=== PATIENT | female | born 1965 | race Caucasian/White ===

== ENCOUNTER 2019-09-01 15:59 | Inpatient (IN) | payer OTHER, SELFPAY ==
[2019-09-01 16:01] VITALS: BP 130/82; PULSE 105; RESP 18; TEMP 36.7; O2SAT 99; BMI 29.7
--- NOTE | 2019-09-01 16:33 | ED.DCSUM_ITS ---
History of Present Illness Chief Complaint: Substance Abuse Informant: Patient Onset: - - years Narrative: Patient is a 53-year-old female with history of chronic benzo use requesting detox. Patient states for 13 years she has been on 2 mg of Xanax nightly. She is also been on Ambien 0.5 mg nightly. The past 26 years she is been on nortriptyline 100 mg that she started taking for depression. Finally she is also been on trazodone 200 mg nightly for years as well. She states her just recently found out about her Xanax and Ambien use and she is now requesting detox. She was seen by 180 who recommended she come to the emergency room for admission to detox. Patient notes that if she does forget to take her medication she gets very shaky as well as nausea and vomiting. Over the past she has missed alcohol with these medications and is had multiple falls and head injuries. She not had a recent falls in the past 9 months. Patient denies any homicidal suicidal ideations. She denies any worsening of her depression but notes this has been a very stressful time for her. She states she is ready to get off all these medications. These medications were prescribed by her primary care doctor. The is quite upset that doctor has been prescribing these medications for this long. Patient denies any illicit drug use. She states she still functioning and able to work. Past Medical History - Allergies and Home Meds Allergies/Adverse Reactions: Allergies codeine Allergy (Verified 09/01/19 16:01) Itching Past Medical History: - - Depression Surgical History: noncontributory Lives: Spouse/ Significant Other Alcohol: Occasional Drugs: None - Family History Maternal Family History: Reports: No pertinent history Paternal Family History: Reports: No pertinent history Review of Systems General: Denies: Chills, Fever, Sweats Eyes: Denies: Visual changes - bilaterally, Diplopia ENT: Denies: Rhinorrhea, Sore throat Cardiovascular: Denies: Chest pain, Palpitations Respiratory: Denies: Dyspnea, Cough, Dyspnea on exertion Gastrointestinal: Denies: Abdominal pain, Nausea, Vomiting, Diarrhea, Melena, Hematochezia Genitourinary: Denies: Dysuria, Hematuria, Frequency Musculoskeletal: Denies: Back pain, Extremity Pain Skin: Denies: Rash, Wounds Neurological: Denies: Headache, Weakness, Numbness Psych: Reports: Anxiety, - - Benzodiazepine dependency. Denies: Depression, Suicidal thoughts, Suicidal ideations Physical Exam Vital Signs/Narrative: Vital Signs Temp Pulse Resp BP Pulse Ox 09/01/19 16:01 98.1 F 105 H 18 130/82 H 99 Inital Vital Signs reviewed: Yes General: Well nourished, Well developed, No Acute Distress Head: Normocephalic, Atraumatic Eyes: Perrl, EOMI ENT: Moist mucous membranes, No rhinorrhea Neck: Supple, Nontender Cardiovascular: Regular rate, Regular rhythm, No murmurs Respiratory: No distress, CTA bilaterally, Chest nontender Abdomen: Soft, Nontender, Nondistended, Normal bowel sounds Back: Nontender, Normal Inspection Extremities: Nontender, No edema Skin: Normal color, No rash Neurological: Alert, Oriented x3, Cranial nerves II-XII grossly intact, Normal Strength, Normal Sensation Psychological: Normal affect, Normal Mood. Negative for: Depressed, Agitated Diagnostic/Tx/Re-eval - Medical Decision Making Patient is evaluated for request for benzodiazepine detox. She appears nontoxic in no acute distress. She is mildly tachycardic however patient states he has a history of tachycardia as well as low blood pressure. She is not tremulous at this time. She is a normal neurologic exam. She is behaving appropriate. Patient does generally seem to want to be detox. Discussed with hospitalist who will admit and consult to addiction medicine. Patient is agreeable this plan. Screening labs are ordered per protocol. ED Disposition - Plan for ED Patient: Disposition: [facility] Diagnosis: Benzodiazepine dependence
--- NOTE | 2019-09-01 16:54 | HP.PCM_ITS ---
History of Present Illness Date of Admission: 09/01/19 Chief Complaint: benzodiazepine withdrawal The patient is a 53 year old F with a past medical history of anxiety and depression. Patient was admitted through the ED on 09/01/2019 for benzodiazepine withdrawal. She was referred to us to [facility] for [facility]. Patient states she started taking nortriptyline after she had depression around 26 years ago. That did not help much and subsequently she became depressed and anxious because she was trying to have a second child and was unsuccessful. She was started on benzodiazepines and these were gradually increased and more were added on. She also says she struggles with insomnia and so started taking Ambien as well. She has been on Xanax and trazodone for at least 30 years and says she is been taking Ambien and nortriptyline for at least 26 years. She says her primary care doctor has been prescribing all of these for her. She last saw her primary care doctor in November 2017 but has still been getting scripts for her benzodiazepines. Her found out this last week that she had been taking these medications for all these years and so convinced her to seek help. Patient went 180 today and was told that she needed to come into the hospital for acute withdrawal. Patient has been admitted to be managed for acute benzodiazepine withdrawal. [] Past Medical History Allergies codeine Allergy (Verified 09/01/19 16:01) Itching Surgical History: noncontributory Psychiatric History: No pertinent psych hx PRINCIPAL SYSTEM SOFTWARE ENGINEER History: No pertinent PRINCIPAL SYSTEM SOFTWARE ENGINEER history Lives: Spouse/ Significant Other Smoking Status: Never smoker Alcohol: Occasional Drugs: None - *Family History Maternal History Items: No pertinent history Paternal History Items: No pertinent history Review of Systems Constitutional: Denies: Chills, Fever, Malaise, Weakness, Weight Change, Fatigue Eyes: Denies: Blurred vision HEENT: Denies: Head Aches, Sinus Congestion, Sinus Drainage Cardiovascular: Denies: Chest Pain, Palpitations Respiratory: Denies: Cough, Shortness of Breath, Shortness of breath at rest, Shortness of breath upon exertion, Sputum production Gastrointestinal: Denies: Abdominal Pain, Nausea, Vomiting Genitourinary: Denies: Dysuria Musculoskeletal: Denies: Joint Pain, Joint Tenderness Skin: Denies: Rash, Wounds Neurological: Denies: Numbness, Tingling, Focal weakness Psychiatric: Reports: Anxiety, Depression Hematologic/ Lymphatic: Denies: Easy Bruising, Easy Bleeding VTE Information - Inpt Only VTE Present on Admission: No VTE Pharm Prophylaxis ordered?: Yes Patient Problems: Active and Suspected Problems Benzodiazepine dependence (Acute) - Physical Exam Vitals/I&O's: Vital Signs Temp Pulse Resp BP Pulse Ox 98.1 F 105 H 18 130/82 H 99 09/01/19 16:01 09/01/19 16:01 09/01/19 16:01 09/01/19 16:01 09/01/19 16:01 Oxygen Delivery Method Room Air Weight: 168 lb Body Mass Index (BMI) 29.7 General: Alert, Oriented x3, Cooperative, - - anxious and tearful HEENT: Atraumatic, PERRLA, EOMI, Normocephalic Oral: Moist Mucosa Neck: Supple, No JVD, Negative Carotid Bruits Lungs: Clear to auscultation, Normal air movement, No rhonchi, No wheeze, No rales Cardiovascular: Regular rate, Regular Rhythm, Normal S1, Normal S2, No murmurs Abdomen: Bowel Sounds Present, Soft, Non Tender, Non-Distended, No Hepato- splenomegaly Extremities: No clubbing, No cyanosis, No edema, Capillary Refill Less than 3 Seconds Skin: No rashes, No breakdown Musculoskeletal: No Tenderness to Palpation of Joints or Extremities Lymphatic: No Cervical, Supraclavicular, or Inguinal Adenopathy Neurological: Cranial nerves II-XII grossly intact, Neuro grossly intact, Motor Exam 5/5 strength throughout Psych/Mental Status: Anxious, Alert and oriented to time, place, person, mood and affect Assessment/Plan All Active Problems Benzodiazepine dependence (Acute) 53 y/o admitted for benzodiazepine withdrawal 1. Acute benzodiazepine withdrawal * admit to Med surg with telemetry * check CBC, BMP, serum alcohol level and urine tox * start patient on withdrawal protocol with librium * patient counseled that she would need to be tapered off benzodiazepine in the outpatient setting after acute withdrawal phase is over. Patient will follow- up with Jessica and Dr. Martinez after discharge * 2. Post menopause: * on progesterone and estrogen supplements. * Denies any history of PE or DVT or any family history of such. Patient counseled about estrogen and progesterone supplements and a risk factor for DVT or PE. * Patient states she is aware of this but wants to continue taking the supplements. * DVT prophylaxis: lovenox Code Visit Inpatient E&M: 37163 Init Hosp L3
[2019-09-01 17:28] LABS: Absolute Lymphocyte Count 2.11 X10^3/uL (0.83-4.51); Absolute Neutrophil Count 4.8 X10^3/uL (2.0-7.7); Basophil# 0.04 X10^3/uL; Basophil% 0.5 % (0-1); Eosinophil# 0.04 X10^3/uL; Eosinophils% 0.5 % (0-5); Hematocrit 40.9 % (37-47); Hemoglobin 13.6 g/dL (12.0-15.0); Lymphocyte # 2.11 X10^3/ul (4.0); Lymphocyte % 27.3 % (19-41); Mean Corp Hgb Conc 33.3 g/dL (32-36); Mean Corpuscular Hgb 31.1 pg (27.0-32.0); Mean Corpuscular Volume 93.4 fL (81-99); Mean Platelet Vol. 10.1 fl (6.2-12.0); Monocyte# 0.69 X10^3/uL; Monocyte% 8.9 % (0-10); NRBC Flagged by Analyzer 0 % (0-5); Neutrophil # 4.81 X10^3/uL (2.7-7.7); Neutrophil % 62.2 % (47-70); Platelet Count 238 K/mm3 (150-450); RBC Distribution Width CV 13.8 % (11.6-14.6); RBC Distribution Width SD 47.1 fl (35.1-43.9); Red Blood Count 4.38 M/mm3 (4.2-5.4); White Blood Count 7.7 K/mm3 (4.4-11.0)
[2019-09-01 17:38] VITALS: BMI 31.0; BMI 31.1
[2019-09-01 17:39] LABS: Amphetamine Urine VISTA NEGATIVE (<1000 ng/mL); Anion Gap 7 (5-15); BUN 8 mg/dL (7-18); BUN/Creat Ratio 8.7 RATIO (10-20); Barbiturate Urine VISTA NEGATIVE (< 200 ng/mL); Benzodiazepine Urine VISTA POSITIVE (< 200 ng/mL); Calcium,Total 9.3 mg/dL (8.5-10.1); Chloride 108 mmol/L (98-107); Cocaine Urine VISTA NEGATIVE (< 300 ng/mL); Creatinine, Serum 0.92 mg/dL (0.55-1.02); EST Glomerular Filtration Rate 68 mL/min (>60); Ecstacy Urine VISTA POSITIVE (< 500 ng/mL); Est Glom Filt Rate - Afr Amer 82 mL/min (>60); Glucose 92 mg/dL (74-106); Methadone Urine VISTA NEGATIVE (< 300 ng/mL); PCP Urine VISTA NEGATIVE (< 25 ng/mL); Potassium 3.6 mmol/L (3.5-5.1); Sodium Level 139 mmol/L (136-145); THC Urine VISTA NEGATIVE (< 50 ng/mL); Vista UDS pH Range 6
[2019-09-01] MEDS: chlordiazePOXIDE 25 MG Capsule PO (18:15)
[2019-09-01 18:18] VITALS: BP 134/82; PULSE 95; RESP 16; TEMP 36.8
[2019-09-01 18:18] LABS: Alcohol, Blood (Medical)-Serum < 3.0 mg/dL
[2019-09-01 18:30] VITALS: PULSE 70
[2019-09-01 19:00] VITALS: PULSE 100
[2019-09-01 19:01] VITALS: PULSE 105
[2019-09-01 20:45] VITALS: BP 127/82; PULSE 90; RESP 16; TEMP 36.8; O2SAT 98
[2019-09-02] VITALS (7 sets, daily range): BP systolic 100–119; BP diastolic 63–93; PULSE 88–107; RESP 16–18; TEMP 36.3–37.1; O2SAT 96–99
[2019-09-02] MEDS: hydrOXYzine PAM 25 MG Capsule 50 MG PO ×3 (00:16→18:38)
[2019-09-02] MEDS: chlordiazePOXIDE 25 MG Capsule PO ×4 (00:16→20:18)
[2019-09-02 06:18] LABS: Absolute Lymphocyte Count 2.18 X10^3/uL (0.83-4.51); Absolute Neutrophil Count 4.2 X10^3/uL (2.0-7.7); Basophil# 0.05 X10^3/uL; Basophil% 0.7 % (0-1); Eosinophil# 0.06 X10^3/uL; Eosinophils% 0.8 % (0-5); Hematocrit 38.6 % (37-47); Hemoglobin 12.7 g/dL (12.0-15.0); Lymphocyte # 2.18 X10^3/ul (4.0); Lymphocyte % 30.7 % (19-41); Mean Corp Hgb Conc 32.9 g/dL (32-36); Mean Corpuscular Hgb 30.8 pg (27.0-32.0); Mean Corpuscular Volume 93.7 fL (81-99); Mean Platelet Vol. 9.9 fl (6.2-12.0); Monocyte# 0.65 X10^3/uL; Monocyte% 9.1 % (0-10); NRBC Flagged by Analyzer 0 % (0-5); Neutrophil # 4.15 X10^3/uL (2.7-7.7); Neutrophil % 58.4 % (47-70); Platelet Count 207 K/mm3 (150-450); RBC Distribution Width CV 13.7 % (11.6-14.6); Red Blood Count 4.12 M/mm3 (4.2-5.4); White Blood Count 7.1 K/mm3 (4.4-11.0)
[2019-09-02 06:50] LABS: Anion Gap 5 (5-15); BUN 8 mg/dL (7-18); BUN/Creat Ratio 9.6 RATIO (10-20); Calcium,Total 8.9 mg/dL (8.5-10.1); Chloride 110 mmol/L (98-107); Creatinine, Serum 0.84 mg/dL (0.55-1.02); EST Glomerular Filtration Rate 76 mL/min (>60); Est Glom Filt Rate - Afr Amer 92 mL/min (>60); Estimated Creatinine Clearance 64.07 ml/min; Glucose 96 mg/dL (74-106); Potassium 3.3 mmol/L (3.5-5.1); Sodium Level 140 mmol/L (136-145)
--- NOTE | 2019-09-02 07:37 | PCM.PN.HOSP ---
Patient Problems: Active and Suspected Problems Benzodiazepine dependence (Acute) Reason for Visit: Acute benzo withdrawal Subjective: 53-year-old lady with history of benzo dependence admitted with acute benzo withdrawal Objective: GENERAL: cooperative HEENT: Atraumatic; EYES; Anicteric, Normal Conjunctiva NECK; supple, normal thyroid, RESPIRATORY: Diminished to auscultation CARDIOVASCULAR: Regular S1 S2, GI: soft, normoactive bowel sounds, : No Renal angle tenderness; EXTREMITIES: No edema, no clubbing, MUSCULOSKELETAL: no muscle waisting NEURO: Awake; no lateralizing signs. SKIN: No Rash PSYCH; Flat affect Vitals/I&O's: Vital Signs Temp Pulse Resp BP Pulse Ox 97.8 F 89 18 104/63 99 09/02/19 04:55 09/02/19 04:55 09/02/19 04:55 09/02/19 04:55 09/02/19 04:55 Oxygen Delivery Method Room Air Weight: 79.515 kg Body Mass Index (BMI) 31.0 Intake and Output for Last 24 Hours 08/31/19 09/01/19 09/02/19 23:59 23:59 23:59 Intake Total 500 / 500 Balance 500 / 500 Laboratory Results 09/01/19 17:05: WBC 7.7, RBC 4.38, Hgb 13.6, Hct 40.9, MCV 93.4, MCH 31.1, MCHC 33.3, RDW Std Deviation 47.1 H, RDW Coeff of Latonya 13.8, Plt Count 238, MPV 10.1, Immature Gran % (Auto) 0.600, Neut % (Auto) 62.2, Lymph % (Auto) 27.3, [place] % (Auto) 8.9, Eos % (Auto) 0.5, Baso % (Auto) 0.5, Absolute Neuts (auto) 4.8, Absolute Lymphs (auto) 2.11, Nucleated RBC % 0 09/01/19 17:05: Sodium 139, Potassium 3.6, Chloride 108 H, Carbon Dioxide 24.0, Anion Gap 7, BUN 8, Creatinine 0.92, Estim Creat Clear Calc 58.50, Est GFR (MDRD) Af Amer 82, Est GFR (MDRD) Non-Af 68, BUN/Creatinine Ratio 8.7 L, Glucose 92, Calcium 9.3 09/01/19 17:05: Ethyl Alcohol < 3.0 09/01/19 17:05: Urine Opiates Screen NEGATIVE, Urine Methadone Screen NEGATIVE, Ur Barbiturates Screen NEGATIVE, Ur Phencyclidine Scrn NEGATIVE, Ur Amphetamines Screen NEGATIVE, U Methamphetamin-MDMA POSITIVE H, U Benzodiazepines Scrn POSITIVE H, Urine Cocaine Screen NEGATIVE, U Cannabinoids Screen NEGATIVE, Ur Drug Screen Comment 09/02/19 05:35: WBC 7.1, RBC 4.12 L, Hgb 12.7, Hct 38.6, MCV 93.7, MCH 30.8, MCHC 32.9, RDW Std Deviation 47.0 H, RDW Coeff of Latonya 13.7, Plt Count 207, MPV 9.9, Immature Gran % (Auto) 0.300, Neut % (Auto) 58.4, Lymph % (Auto) 30.7, [place] % (Auto) 9.1, Eos % (Auto) 0.8, Baso % (Auto) 0.7, Absolute Neuts (auto) 4.2, Absolute Lymphs (auto) 2.18, Nucleated RBC % 0 09/02/19 05:35: Sodium 140, Potassium 3.3 L, Chloride 110 H, Carbon Dioxide 25.0, Anion Gap 5, BUN 8, Creatinine 0.84, Estim Creat Clear Calc 64.07, Est GFR (MDRD) Af Amer 92, Est GFR (MDRD) Non-Af 76, BUN/Creatinine Ratio 9.6 L, Glucose 96, Calcium 8.9 Current Medications Chlordiazepoxide (Librium) 50 mg PO Q6H KENNEDY; Taper Stop: 09/04/19 20:29 Last Admin: 09/02/19 06:08 Dose: 50 mg Documented by: Dextrose (D50w Syringe) 0 gm IV X1 PRN; Protocol PRN Reason: Hypoglycemia Dicyclomine HCl (Bentyl) 20 mg PO Q6H PRN PRN PRN Reason: abdominal discomfort Glucagon () 1 mg IM .X1 PRN PRN Reason: Hypoglycemia Hydroxyzine Pamoate (Vistaril Pamoate Capsule) 50 mg PO Q6H PRN PRN PRN Reason: Mild Anxiety (score 1/3) Last Admin: 09/02/19 00:16 Dose: 50 mg Documented by: Lorazepam (Ativan) 2 mg IV X1 PRN PRN Reason: Seizure Lorazepam (Ativan) 2 mg PO Q2H PRN PRN; Protocol PRN Reason: CIWA score > 8 but <15 Lorazepam (Ativan) 2 mg PO UD PRN; Protocol PRN Reason: CIWA score >/=15. Lorazepam (Ativan) 2 mg IV Q2H PRN PRN; Protocol PRN Reason: CIWA score > 8 but <15 Lorazepam (Ativan) 2 mg IV UD PRN; Protocol PRN Reason: CIWA score >/=15. Ondansetron HCl (Zofran) 4 mg IV Q8H PRN PRN PRN Reason: NAUSEA/VOMITING Sodium Chloride () 10 - 40 ml IV UD PRN PRN Reason: SALINE FLUSH STROKE Vital Signs/Narrative: Vital Signs Temp Pulse Resp BP Pulse Ox 09/02/19 04:55 97.8 F 89 18 104/63 99 Medical Necessity - Tobacco Use Smoking Status: Never smoker Tobacco Use: Secondhand Assessment/Plan All Active Problems Benzodiazepine dependence (Acute) 53-year-old lady with history of benzo dependence admitted with acute benzo withdrawal 1. Acute benzodiazepine withdrawal. ?Patient has been admitted to regular nursing floor being managed with Librium taper. Plan is for patient to follow-up with outpatient counseling services for long-term taper of his benzos 2. Obesity with BMI of 31 ?Weight loss advised 3. Depression with anxiety Patient is on other psychotropic medications including nortriptyline and trazodone. Patient requested to be weaned off did advise patient and about abrupt withdrawal of above medications and that this may need to be tapered off gradually over weeks as outpatient. 4. DVT prophylaxis ?Lovenox Code Visit Inpatient E&M: 19584 Subs Hosp L2
[2019-09-02] MEDS: Dicyclomine 10 MG Capsule 20 MG PO ×2 (08:40→20:18)
[2019-09-02] MEDS: Pantoprazole Sodium 20 MG Tablet PO (10:22)
[2019-09-02] MEDS: Estradiol 1 MG Tablet PO (10:22)
[2019-09-02] MEDS: Multivitamins,Therapeutic Tablet 1 TABLET PO (10:22)
[2019-09-02] MEDS: Psyllium 1 PACKET PO (10:22)
[2019-09-02] MEDS: Acetaminophen 325 MG Tablet 650 MG PO ×2 (10:25→18:38)
--- NOTE | 2019-09-02 12:54 | CASEMGMT ---
Social Work Note Pt is at [facility] for benzodiazepine withdrawal. SW met with pt and introduced self and role at [facility]. Pt is alert and orientated x3. Pt states that she was sent to [facility] for detox from [facility]. Pt states that her counselor at [facility] recommended going to [facility] for Dr. Martinez. Pt states that she plans on doing outpatient counseling at discharge and plans on following up with [facility] at discharge. Pt denied this worker arranging an appointment for her. Pt denied additional needs or concerns at this time. Plan: Outpatient at [facility] Mamta Dimas INSOLE LIP TURNER, BOTTLE BLOWER
--- NOTE | 2019-09-02 16:57 | CHAPLAIN ---
Type of Pastoral Visit _x__ Initial Visit ___ Follow-up Visit ___ On-call Visit ___ General Patient Visit ___ Spiritual Assessment ___ Family Conference ___ Bereavement ___ Rapid Response ___ Code Blue ___ Other (describe below) Pastoral Care Referral From _x__ Patient ___ Family ___ Nurse ___ Physician ___ Field Care Coordinator ___ Grounds Crew Supervisor ___ Other (describe below) Sacrament/Intervention _x__ Active listening ___ Anointing ___ Taoist ___ Bereavement ___ Communion ___ Josi exploration ___ ___ Life review _x__ Prayer ___ Reconciliation ___ Sacrament of Sick _x__ Supportive presence ___ Wedding ___ Other (describe below) Pastoral Comments
[2019-09-02] MEDS: Ibuprofen 600 MG Tablet PO (22:50)
[2019-09-02] MEDS: 0.9% Saline Lock 10 ML Syringe IV (22:51)
[2019-09-02] MEDS: MELATONIN 3 MG TABLET PO (22:51)
[2019-09-02] MEDS: Mag Hydrox/Al Hydrox/Simeth 30 ML UDC PO (22:51)
[2019-09-03 05:00] VITALS: BP 83/41; PULSE 82; RESP 16; TEMP 36.9; O2SAT 98
[2019-09-03] MEDS: chlordiazePOXIDE 25 MG Capsule PO ×3 (05:07→19:58)
[2019-09-03] MEDS: Acetaminophen 325 MG Tablet 650 MG PO ×2 (05:07→11:33)
[2019-09-03 08:48] VITALS: BP 97/58; PULSE 99; RESP 18; TEMP 36.6; O2SAT 100
[2019-09-03] MEDS: Multivitamins,Therapeutic Tablet 1 TABLET PO (08:55)
[2019-09-03] MEDS: Ibuprofen 600 MG Tablet PO ×2 (08:55→15:33)
[2019-09-03] MEDS: Estradiol 1 MG Tablet PO (08:56)
[2019-09-03] MEDS: Psyllium 1 PACKET PO (08:56)
[2019-09-03] MEDS: Pantoprazole Sodium 20 MG Tablet PO (08:56)
[2019-09-03] MEDS: hydrOXYzine PAM 25 MG Capsule 50 MG PO ×2 (08:56→21:20)
[2019-09-03] MEDS: Dicyclomine 10 MG Capsule 20 MG PO (08:56)
--- NOTE | 2019-09-03 09:14 | PCM.PN.HOSP ---
Patient Problems: Active and Suspected Problems Benzodiazepine dependence (Acute) Reason for Visit: Acute benzodiazepine withdrawal Subjective: Patient seen tearful. Also complains of aching all over also has relatively low blood pressure and order was given for patient to receive IV fluids Objective: GENERAL: cooperative HEENT: Atraumatic; EYES; Anicteric, Normal Conjunctiva NECK; supple, normal thyroid, RESPIRATORY: Diminished to auscultation CARDIOVASCULAR: Regular S1 S2, GI: soft, normoactive bowel sounds, : No Renal angle tenderness; EXTREMITIES: No edema, no clubbing, MUSCULOSKELETAL: no muscle waisting NEURO: Awake; no lateralizing signs. SKIN: No Rash PSYCH; Flat affect Vitals/I&O's: Vital Signs Temp Pulse Resp BP Pulse Ox 97.8 F 99 18 97/58 L 100 09/03/19 08:48 09/03/19 08:48 09/03/19 08:48 09/03/19 08:48 09/03/19 08:48 Oxygen Delivery Method Room Air Weight: 79.515 kg Body Mass Index (BMI) 31.0 Intake and Output for Last 24 Hours 09/01/19 09/02/19 09/03/19 23:59 23:59 23:59 Intake Total 500 / 500 1600 / 1600 30 / 30 Balance 500 / 500 1600 / 1600 30 / 30 Current Medications Acetaminophen (Tylenol) 650 mg PO Q6H PRN PRN PRN Reason: Pain Score 1-3/Temp > 100.7 F Last Admin: 09/03/19 05:07 Dose: 650 mg Documented by: Al Hydroxide/Mg Hydroxide (Mylanta Ii) 30 ml PO Q6H PRN PRN PRN Reason: Gastric Burning Last Admin: 09/02/19 22:51 Dose: 30 ml Documented by: Chlordiazepoxide (Librium) 50 mg PO Q8H KENNEDY; Taper Stop: 09/04/19 20:29 Last Admin: 09/03/19 05:07 Dose: 50 mg Documented by: Dextrose (D50w Syringe) 0 gm IV X1 PRN; Protocol PRN Reason: Hypoglycemia Dicyclomine HCl (Bentyl) 20 mg PO Q6H PRN PRN PRN Reason: abdominal discomfort Last Admin: 09/03/19 08:56 Dose: 20 mg Documented by: Estradiol (Estrace (G)) 1 mg PO DAILY@0800 [facility] Last Admin: 09/03/19 08:56 Dose: 1 mg Documented by: Glucagon () 1 mg IM .X1 PRN PRN Reason: Hypoglycemia Guaifenesin (Robitussin) 20 ml PO Q4H PRN PRN PRN Reason: COUGH Hydroxyzine Pamoate (Vistaril Pamoate Capsule) 50 mg PO Q6H PRN PRN PRN Reason: Mild Anxiety (score 1/3) Last Admin: 09/03/19 08:56 Dose: 50 mg Documented by: Ibuprofen (Motrin) 600 mg PO Q8H PRN PRN PRN Reason: Pain Score 1-10/10 Last Admin: 09/03/19 08:55 Dose: 600 mg Documented by: Lorazepam (Ativan) 2 mg IV X1 PRN PRN Reason: Seizure Lorazepam (Ativan) 2 mg PO Q2H PRN PRN; Protocol PRN Reason: CIWA score > 8 but <15 Lorazepam (Ativan) 2 mg PO UD PRN; Protocol PRN Reason: CIWA score >/=15. Lorazepam (Ativan) 2 mg IV Q2H PRN PRN; Protocol PRN Reason: CIWA score > 8 but <15 Lorazepam (Ativan) 2 mg IV UD PRN; Protocol PRN Reason: CIWA score >/=15. Magnesium Hydroxide (Milk Of Magnesia) 30 ml PO DAILY PRN PRN PRN Reason: Constipation Melatonin (Melatonin) 3 mg PO QHS PRN PRN PRN Reason: INSOMNIA Last Admin: 09/02/19 22:51 Dose: 3 mg Documented by: [facility]it[facility] ([facility]) [facility] Last Admin: 09/03/19 08:55 Dose: 1 tablet Documented by: Nortriptyline HCl (Pamelor) 150 mg PO QHS [facility] Ondansetron HCl (Zofran) 4 mg IV Q8H PRN PRN PRN Reason: NAUSEA/VOMITING Pantoprazole Sodium (Protonix) 20 mg PO DAILY [facility] Last Admin: 09/03/19 08:56 Dose: 20 mg Documented by: Promethazine HCl (Phenergan) 25 mg IM Q6H PRN PRN PRN Reason: Breakthrough nausea/vomiting Psyllium Hydrophilic Mucilloid (Metamucil) 1 packet PO DAILY [facility] Last Admin: 09/03/19 08:56 Dose: 1 packet Documented by: Sodium Chloride () 10 - 40 ml IV UD PRN PRN Reason: SALINE FLUSH Last Admin: 09/02/19 22:51 Dose: 10 ml Documented by: Trazodone HCl (Desyrel) 300 mg PO QHS KENNEDY STROKE Vital Signs/Narrative: Vital Signs Temp Pulse Resp BP Pulse Ox 09/03/19 08:48 97.8 F 99 18 97/58 L 100 Medical Necessity - Tobacco Use Smoking Status: Never smoker Tobacco Use: Secondhand Assessment/Plan All Active Problems Benzodiazepine dependence (Acute) 53-year-old lady with history of benzo dependence admitted with acute benzo withdrawal 1. Acute benzodiazepine withdrawal. ?Patient has been admitted to regular nursing floor being managed with Librium taper. Plan is for patient to follow-up with outpatient counseling services for long-term taper of his benzos ?09/03/2019; patient remains significantly symptomatic. Patient will be kept an additional day 2. Obesity with BMI of 31 ?Weight loss advised 3. Depression with anxiety Patient is on other psychotropic medications including nortriptyline and trazodone. Patient requested to be weaned off did advise patient and about abrupt withdrawal of above medications and that this may need to be tapered off gradually over weeks as outpatient. 4. DVT prophylaxis ?Lovenox 5. Hypotension ?An order was given for patient to receive 1 L fluid bolus Code Visit Inpatient E&M: 74665 Subs Hosp L2
--- NOTE | 2019-09-03 09:52 | CASEMGMT ---
Social Work Note SW met with pt to discuss discharge plans with [facility]. Pt states that [facility] still hasn't been in contact with her. Pt states that when she went to [facility] she worked with Khushboo and the nurse Ej. SW asked pt if this worker can call [facility] to arrange an appointment. Pt gave this worker permission to call [facility]. Pt signed release of authorization document and placed on pt's chart. CHHAYA placed a call to Khushboo at [facility]. Khushboo states she will need release of information faxed ([phone]) and then she will call pt to arrange an appointment. Release of information faxed to [facility]. Plan: [facility] Mamta Dimas PREVENTIVE MEDICINE SPECIALIST, BEAD WORKER SEWING
[2019-09-03] MEDS: 0.9% Normal Saline 1,000 ML 999 ML IV (10:29)
[2019-09-03 11:53] VITALS: BP 106/63; PULSE 90; RESP 18; TEMP 36.7; O2SAT 98
[2019-09-03] MEDS: LORazepam 2 MG/ML Syringe IV (15:32)
[2019-09-03] MEDS: 0.9% Saline Lock 10 ML Syringe IV (15:33)
[2019-09-03] MEDS: Ondansetron 4 MG/2 ML Vial IV (15:33)
[2019-09-03 15:59] VITALS: BP 94/61; PULSE 94; RESP 18; TEMP 36.6; O2SAT 98
[2019-09-03 19:05] VITALS: BP 104/63; PULSE 98; RESP 18; TEMP 36.5; O2SAT 98
[2019-09-03] MEDS: traZODone 100 MG Tablet 200 MG PO (21:20)
[2019-09-03] MEDS: MELATONIN 3 MG TABLET PO (21:20)
[2019-09-03] MEDS: Nortriptyline 25 MG Capsule 100 MG PO (21:21)
[2019-09-04] VITALS (7 sets, daily range): BP systolic 80–103; BP diastolic 42–59; PULSE 76–99; RESP 16–18; TEMP 36.3–37.1; O2SAT 94–99
[2019-09-04] MEDS: 0.9% Normal Saline 1,000 ML 999 ML IV (04:10)
[2019-09-04] MEDS: 0.9% Saline Lock 10 ML Syringe IV (04:10)
[2019-09-04] MEDS: chlordiazePOXIDE 25 MG Capsule PO (08:20)
[2019-09-04] MEDS: Multivitamins,Therapeutic Tablet 1 TABLET PO (08:20)
[2019-09-04] MEDS: Estradiol 1 MG Tablet PO (08:20)
[2019-09-04] MEDS: Pantoprazole Sodium 20 MG Tablet PO (09:36)
[2019-09-04] MEDS: Psyllium 1 PACKET PO (09:36)
--- NOTE | 2019-09-04 09:59 | PN_ITS ---
Patient Problems: Active and Suspected Problems Benzodiazepine dependence (Acute) Reason for Visit: Acute benzodiazepine withdrawal Subjective: Patient planes of feeling weak and still remains relatively hypotensive with systolic blood pressure less than 90. Did receive IV fluids the day prior started on continuous IV fluid starting 09/04/2019. Objective: GENERAL: cooperative HEENT: Atraumatic; EYES; Anicteric, Normal Conjunctiva NECK; supple, normal thyroid, RESPIRATORY: Diminished to auscultation CARDIOVASCULAR: Regular S1 S2, GI: soft, normoactive bowel sounds, : No Renal angle tenderness; EXTREMITIES: No edema, no clubbing, MUSCULOSKELETAL: no muscle waisting NEURO: Awake; no lateralizing signs. SKIN: No Rash PSYCH; Flat affect Vitals/I&O's: Vital Signs Temp Pulse Resp BP Pulse Ox 98.4 F 96 16 80/42 L 94 09/04/19 07:56 09/04/19 07:56 09/04/19 07:56 09/04/19 07:56 09/04/19 07:56 Oxygen Delivery Method Room Air Weight: 79.515 kg Body Mass Index (BMI) 31.0 Intake and Output for Last 24 Hours 09/02/19 09/03/19 09/04/19 23:59 23:59 23:59 Intake Total 1600 / 1600 2330 / 2330 1800 / 1800 Balance 1600 / 1600 2330 / 2330 1800 / 1800 Current Medications Acetaminophen (Tylenol) 650 mg PO Q6H PRN PRN PRN Reason: Pain Score 1-3/Temp > 100.7 F Last Admin: 09/03/19 11:33 Dose: 650 mg Documented by: Al Hydroxide/Mg Hydroxide (Mylanta Ii) 30 ml PO Q6H PRN PRN PRN Reason: Gastric Burning Last Admin: 09/02/19 22:51 Dose: 30 ml Documented by: Chlordiazepoxide (Librium) 25 mg PO Q12H [facility]EDY; Taper Stop: 09/04/19 20:29 Last Admin: 09/04/19 08:20 Dose: 25 mg Documented by: Dextrose (D50w Syringe) 0 gm IV X1 PRN; Protocol PRN Reason: Hypoglycemia Dicyclomine HCl (Bentyl) 20 mg PO Q6H PRN PRN PRN Reason: abdominal discomfort Last Admin: 09/03/19 08:56 Dose: 20 mg Documented by: Estradiol (Estrace (G)) 1 mg PO DAILY@0800 [facility] Last Admin: 09/04/19 08:20 Dose: 1 mg Documented by: Glucagon () 1 mg IM .X1 PRN PRN Reason: Hypoglycemia Guaifenesin (Robitussin) 20 ml PO Q4H PRN PRN PRN Reason: COUGH Hydroxyzine Pamoate (Vistaril Pamoate Capsule) 50 mg PO Q6H PRN PRN PRN Reason: Mild Anxiety (score 1/3) Last Admin: 09/03/19 21:20 Dose: 50 mg Documented by: Potassium Chloride/Sodium Chloride () 1,000 mls @ 125 mls/hr IV .Q8H [facility] Ibuprofen (Motrin) 600 mg PO Q6H PRN PRN PRN Reason: Pain Score 1-10/10 Last Admin: 09/03/19 15:33 Dose: 600 mg Documented by: Lorazepam (Ativan) 2 mg IV X1 PRN PRN Reason: Seizure Lorazepam (Ativan) 2 mg PO Q2H PRN PRN; Protocol PRN Reason: CIWA score > 8 but <15 Lorazepam (Ativan) 2 mg PO UD PRN; Protocol PRN Reason: CIWA score >/=15. Lorazepam (Ativan) 2 mg IV Q2H PRN PRN; Protocol PRN Reason: CIWA score > 8 but <15 Lorazepam (Ativan) 2 mg IV UD PRN; Protocol PRN Reason: CIWA score >/=15. Last Admin: 09/03/19 15:32 Dose: 2 mg Documented by: Magnesium Hydroxide (Milk Of Magnesia) 30 ml PO DAILY PRN PRN PRN Reason: Constipation Melatonin (Melatonin) 3 mg PO QHS PRN PRN PRN Reason: INSOMNIA Last Admin: 09/03/19 21:20 Dose: 3 mg Documented by: [facility]) [facility] Last Admin: 09/04/19 08:20 Dose: 1 tablet Documented by: Nortriptyline HCl (Pamelor) 100 mg PO QHS [facility] Last Admin: 09/03/19 21:21 Dose: 100 mg Documented by: Ondansetron HCl (Zofran) 4 mg IV Q8H PRN PRN PRN Reason: NAUSEA/VOMITING Last Admin: 09/03/19 15:33 Dose: 4 mg Documented by: Pantoprazole Sodium (Protonix) 20 mg PO DAILY [facility] Last Admin: 09/04/19 09:36 Dose: 20 mg Documented by: Promethazine HCl (Phenergan) 25 mg IM Q6H PRN PRN PRN Reason: Breakthrough nausea/vomiting Psyllium Hydrophilic Mucilloid (Metamucil) 1 packet PO DAILY [facility] Last Admin: 09/04/19 09:36 Dose: 1 packet Documented by: Sodium Chloride () 10 - 40 ml IV UD PRN PRN Reason: SALINE FLUSH Last Admin: 09/04/19 04:10 Dose: 10 ml Documented by: Trazodone HCl (Desyrel) 200 mg PO QHS [facility] Last Admin: 09/03/19 21:20 Dose: 200 mg Documented by: STROKE Vital Signs/Narrative: Vital Signs Temp Pulse Resp BP Pulse Ox 09/04/19 07:56 98.4 F 96 16 80/42 L 94 09/04/19 06:15 98.4 F 86 18 103/58 L 98 Medical Necessity - Tobacco Use Smoking Status: Never smoker Tobacco Use: Secondhand Assessment/Plan All Active Problems Benzodiazepine dependence (Acute) 53-year-old lady with history of benzo dependence admitted with acute benzo withdrawal 1. Acute benzodiazepine withdrawal. ?Patient has been admitted to regular nursing floor being managed with Librium taper. Plan is for patient to follow-up with outpatient counseling services for long-term taper of his benzos ?09/03/2019; patient remains significantly symptomatic. Patient will be kept an additional day -09/04/2019 Patient complains of feeling weak and still remains relatively hypotensive with systolic blood pressure less than 90. Did receive IV fluids the day prior started on continuous IV fluid starting 09/04/2019. Decision to discharge patient deferred for an additional day 2. Obesity with BMI of 31 ?Weight loss advised 3. Depression with anxiety Patient is on other psychotropic medications including nortriptyline and trazodone. Patient requested to be weaned off did advise patient and about abrupt withdrawal of above medications and that this may need to be tapered off gradually over weeks as outpatient. 4. Hypotension ?An order was given for patient to receive 1 L fluid bolus ?09/04/2019 Patient still remains relatively hypotensive with systolic blood pressure less than 90. Did receive IV fluids the day prior started on continuous IV fluid starting 09/04/2019. 5. DVT prophylaxis ?Lovenox Code Visit Inpatient E&M: 80591 Subs Hosp L2
[2019-09-04 10:16] LABS: Hematocrit 36.8 % (37-47); Hemoglobin 12.2 g/dL (12.0-15.0); Mean Corp Hgb Conc 33.2 g/dL (32-36); Mean Corpuscular Hgb 31.4 pg (27.0-32.0); Mean Corpuscular Volume 94.8 fL (81-99); Mean Platelet Vol. 9.7 fl (6.2-12.0); Platelet Count 213 K/mm3 (150-450); RBC Distribution Width CV 13.6 % (11.6-14.6); RBC Distribution Width SD 47.7 fl (35.1-43.9); Red Blood Count 3.88 M/mm3 (4.2-5.4); White Blood Count 5.1 K/mm3 (4.4-11.0)
[2019-09-04 10:50] LABS: Anion Gap 4 (5-15); BUN 8 mg/dL (7-18); BUN/Creat Ratio 8.4 RATIO (10-20); Calcium,Total 8.4 mg/dL (8.5-10.1); Chloride 113 mmol/L (98-107); Creatinine, Serum 0.95 mg/dL (0.55-1.02); EST Glomerular Filtration Rate 65 mL/min (>60); Est Glom Filt Rate - Afr Amer 79 mL/min (>60); Estimated Creatinine Clearance 56.65 ml/min; Glucose 122 mg/dL (74-106); Magnesium 2.2 mg/dL (1.6-2.6); Potassium 3.7 mmol/L (3.5-5.1); Sodium Level 142 mmol/L (136-145)
[2019-09-04] MEDS: Magnesium Hydroxide 30 ML UDC PO (18:27)
[2019-09-04] MEDS: Dicyclomine 10 MG Capsule 20 MG PO (18:28)
[2019-09-04] MEDS: hydrOXYzine PAM 25 MG Capsule 50 MG PO (23:00)
[2019-09-04] MEDS: MELATONIN 3 MG TABLET PO (23:00)
[2019-09-04] MEDS: Nortriptyline 25 MG Capsule 100 MG PO (23:01)
[2019-09-04] MEDS: traZODone 100 MG Tablet 200 MG PO (23:01)
[2019-09-05 02:50] VITALS: BP 105/65; PULSE 87; RESP 18; TEMP 36.7; O2SAT 96
[2019-09-05 06:17] LABS: Hemoglobin 11.1 g/dL (12.0-15.0); Mean Corp Hgb Conc 31.7 g/dL (32-36); Mean Corpuscular Hgb 30.1 pg (27.0-32.0); Mean Corpuscular Volume 94.9 fL (81-99); Mean Platelet Vol. 9.9 fl (6.2-12.0); Platelet Count 226 K/mm3 (150-450); RBC Distribution Width CV 13.9 % (11.6-14.6); RBC Distribution Width SD 48.6 fl (35.1-43.9); Red Blood Count 3.69 M/mm3 (4.2-5.4); White Blood Count 5.6 K/mm3 (4.4-11.0)
[2019-09-05 06:28] LABS: Anion Gap 3 (5-15); BUN 8 mg/dL (7-18); BUN/Creat Ratio 10.9 RATIO (10-20); Calcium,Total 8.2 mg/dL (8.5-10.1); Chloride 116 mmol/L (98-107); Creatinine, Serum 0.74 mg/dL (0.55-1.02); EST Glomerular Filtration Rate 87 mL/min (>60); Est Glom Filt Rate - Afr Amer 106 mL/min (>60); Estimated Creatinine Clearance 71.89 ml/min; Glucose 101 mg/dL (74-106); Sodium Level 142 mmol/L (136-145)
--- NOTE | 2019-09-05 07:47 | PCM.DC.SUM ---
Discharge Date and Diagnosis - Problem List Patient Problems: Active and Suspected Problems Benzodiazepine dependence (Acute) Date of Admission: 09/01/19 Date of Discharge: 09/05/19 - Primary Discharge Diagnosis Active and Suspected Problems Benzodiazepine dependence (Acute) Hospital Course and Treatment Summary of Care Provided: 53-year-old lady with history of benzo dependence admitted with acute benzo withdrawal 1. Acute benzodiazepine withdrawal. ?Patient has been admitted to regular nursing floor being managed with Librium taper. Plan is for patient to follow-up with outpatient counseling services for long-term taper of his benzos ?09/03/2019; patient remains significantly symptomatic. Patient will be kept an additional day -09/04/2019 Patient complains of feeling weak and still remains relatively hypotensive with systolic blood pressure less than 90. Did receive IV fluids the day prior started on continuous IV fluid starting 09/04/2019. Decision to discharge patient deferred for an additional day ?09/05/2019 patient was discharged instructed to follow-up with her 's primary care physician ( already has an appointment made) for initiation of her Librium taper 2. Obesity with BMI of 31 ?Weight loss advised 3. Depression with anxiety Patient is on other psychotropic medications including nortriptyline and trazodone. Patient requested to be weaned off did advise patient and about abrupt withdrawal of above medications and that this may need to be tapered off gradually over weeks as outpatient. 4. Hypotension ?An order was given for patient to receive 1 L fluid bolus ?09/04/2019 Patient still remains relatively hypotensive with systolic blood pressure less than 90. Did receive IV fluids the day prior started on continuous IV fluid starting 09/04/2019. -09/05/2019 after discussion with patient's came to the realization patient hypotension is apparently chronic and has been tried on compression stockings in addition to midodrine by her primary care physician. Was instructed to follow-up with his new primary care physician for subsequent treatment 5. DVT prophylaxis ?Lovenox Patient Problems: Active and Suspected Problems Benzodiazepine dependence (Acute) Objective: GENERAL: cooperative HEENT: Atraumatic; EYES; Anicteric, Normal Conjunctiva NECK; supple, normal thyroid, RESPIRATORY: Diminished to auscultation CARDIOVASCULAR: Regular S1 S2, GI: soft, normoactive bowel sounds, : No Renal angle tenderness; EXTREMITIES: No edema, no clubbing, MUSCULOSKELETAL: no muscle waisting NEURO: Awake; no lateralizing signs. SKIN: No Rash PSYCH; Flat affect - Physical Exam Vitals/I&O's: Vital Signs Temp Pulse Resp BP Pulse Ox 98.1 F 87 18 105/65 96 09/05/19 02:50 09/05/19 02:50 09/05/19 02:50 09/05/19 02:50 09/05/19 02:50 Oxygen Delivery Method Room Air Weight: 79.515 kg Body Mass Index (BMI) 31.0 Intake and Output for Last 24 Hours 09/03/19 09/04/19 09/05/19 23:59 23:59 23:59 Intake Total 2330 / 2330 2797.92 / 3197.92 1800 / 1800 Balance 2330 / 2330 2797.92 / 3197.92 1800 / 1800 Laboratory Results 09/04/19 10:05: WBC 5.1, RBC 3.88 L, Hgb 12.2, Hct 36.8 L, MCV 94.8, MCH 31.4, MCHC 33.2, RDW Std Deviation 47.7 H, RDW Coeff of Latonya 13.6, Plt Count 213, MPV 9.7 09/04/19 10:05: Sodium 142, Potassium 3.7, Chloride 113 H, Carbon Dioxide 25.0, Anion Gap 4 L, BUN 8, Creatinine 0.95, Estim Creat Clear Calc 56.65, Est GFR (MDRD) Af Amer 79, Est GFR (MDRD) Non-Af 65, BUN/Creatinine Ratio 8.4 L, Glucose 122 H, Calcium 8.4 L, Magnesium 2.2 09/05/19 05:46: WBC 5.6, RBC 3.69 L, Hgb 11.1 L, Hct 35.0 L, MCV 94.9, MCH 30.1, MCHC 31.7 L, RDW Std Deviation 48.6 H, RDW Coeff of Latonya 13.9, Plt Count 226, MPV 9.9 09/05/19 05:46: Sodium 142, Potassium 4.0, Chloride 116 H, Carbon Dioxide 23.0, Anion Gap 3 L, BUN 8, Creatinine 0.74, Estim Creat Clear Calc 71.89, Est GFR (MDRD) Af Amer 106, Est GFR (MDRD) Non-Af 87, BUN/Creatinine Ratio 10.9, Glucose 101, Calcium 8.2 L Current Medications Acetaminophen (Tylenol) 650 mg PO Q6H PRN PRN PRN Reason: Pain Score 1-3/Temp > 100.7 F Last Admin: 09/03/19 11:33 Dose: 650 mg Documented by: Al Hydroxide/Mg Hydroxide (Mylanta Ii) 30 ml PO Q6H PRN PRN PRN Reason: Gastric Burning Last Admin: 09/02/19 22:51 Dose: 30 ml Documented by: Dextrose (D50w Syringe) 0 gm IV X1 PRN; Protocol PRN Reason: Hypoglycemia Dicyclomine HCl (Bentyl) 20 mg PO Q6H PRN PRN PRN Reason: abdominal discomfort Last Admin: 09/04/19 18:28 Dose: 20 mg Documented by: Estradiol (Estrace (G)) 1 mg PO DAILY@0800 [facility] 234 BEDS AT [facility] Last Admin: 09/04/19 08:20 Dose: 1 mg Documented by: Glucagon () 1 mg IM .X1 PRN PRN Reason: Hypoglycemia Guaifenesin (Robitussin) 20 ml PO Q4H PRN PRN PRN Reason: COUGH Hydroxyzine Pamoate (Vistaril Pamoate Capsule) 50 mg PO Q6H PRN PRN PRN Reason: Mild Anxiety (score 1/3) Last Admin: 09/04/19 23:00 Dose: 50 mg Documented by: Potassium Chloride/Sodium Chloride () 1,000 mls @ 125 mls/hr IV .Q8H COUNTS INCLUDE 234 BEDS AT THE [facility] Last Admin: 09/05/19 03:00 Dose: 125 mls/hr Documented by: Ibuprofen (Motrin) 600 mg PO Q6H PRN PRN PRN Reason: Pain Score 1-10/10 Last Admin: 09/03/19 15:33 Dose: 600 mg Documented by: Magnesium Hydroxide (Milk Of Magnesia) 30 ml PO DAILY PRN PRN PRN Reason: Constipation Last Admin: 09/04/19 18:27 Dose: 30 ml Documented by: Melatonin (Melatonin) 3 mg PO QHS PRN PRN PRN Reason: INSOMNIA Last Admin: 09/04/19 23:00 Dose: 3 mg Documented by: Multivitamins (Multivitamin) [facility] Last Admin: 09/04/19 08:20 Dose: 1 tablet Documented by: Nortriptyline HCl (Pamelor) 100 mg PO QHS [facility] 234 BEDS AT [facility] Last Admin: 09/04/19 23:01 Dose: 100 mg Documented by: Ondansetron HCl (Zofran) 4 mg IV Q8H PRN PRN PRN Reason: NAUSEA/VOMITING Last Admin: 09/03/19 15:33 Dose: 4 mg Documented by: Pantoprazole Sodium (Protonix) 20 mg PO DAILY [facility]CLUDE 234 BEDS AT [facility] Last Admin: 09/04/19 09:36 Dose: 20 mg Documented by: Promethazine HCl (Phenergan) 25 mg IM Q6H PRN PRN PRN Reason: Breakthrough nausea/vomiting Psyllium Hydrophilic Mucilloid (Metamucil) 1 packet PO DAILY [facility]CLUDE 234 BEDS AT [facility] Last Admin: 09/04/19 09:36 Dose: 1 packet Documented by: Sodium Chloride () 10 - 40 ml IV UD PRN PRN Reason: SALINE FLUSH Last Admin: 09/04/19 04:10 Dose: 10 ml Documented by: Trazodone HCl (Desyrel) 200 mg PO QHS [facility]CLUDE 234 BEDS AT [facility] Last Admin: 09/04/19 23:01 Dose: 200 mg Documented by: Discharge Diet: No Restrictions Discharge Activity: Return to Normal Activity Home Medications: Medications to take at Discharge Cyclosporine [Restasis Multidose] 1 drp EACH EYE BID 09/01/19 Estradiol 1 mg PO DAILY 09/01/19 Multivitamins,Therapeutic [Multivitamin] 1 tab PO DAILY 09/01/19 Omeprazole Magnesium [Prilosec Otc] 20 mg PO DAILY 09/01/19 Progesterone, Micronized [Progesterone] 400 mg PO DAILY 09/01/19 Psyllium Husk [Fiber] 0.52 gm PO DAILY 09/01/19 traZODone [Desyrel] 300 mg PO QHS PRN PRN 09/01/19 Nortriptyline HCl [Pamelor] 150 mg PO QHS #0 09/05/19 Primary Care Physician: Care Physician,No Primary [Primary Care Provider] - Disposition: Home Minutes spent on discharge:: 39 Patient Condition:: Stable Medical Necessity - Tobacco Use Smoking Status: Never smoker Tobacco Use: Secondhand Meaningful Use Info Meaningful Use Diagnoses (Choose all that apply): None applicable Code Visit Inpatient E&M: 47992 Disch Hosp
[2019-09-05 08:20] VITALS: BP 79/49; PULSE 96; RESP 18; TEMP 36.9; O2SAT 98
[2019-09-05] MEDS: Psyllium 1 PACKET PO (08:33)
[2019-09-05] MEDS: Pantoprazole Sodium 20 MG Tablet PO (08:34)
[2019-09-05] MEDS: Multivitamins,Therapeutic Tablet 1 TABLET PO (08:34)
[2019-09-05] MEDS: Estradiol 1 MG Tablet PO (08:35)
--- NOTE | 2019-09-05 08:54 | DCINST_ITS ---
- Discharge Diagnoses Current Active Problems: Current Active and Chronic Problems Benzodiazepine dependence (Acute) You will use the following diet at home:: No restrictions Allergies/Adverse Reactions: Allergies codeine Allergy (Verified 09/01/19 16:01) Itching Medications to take at Discharge Cyclosporine [Restasis Multidose] 1 drp EACH EYE BID 09/01/19 Estradiol 1 mg PO DAILY 09/01/19 Multivitamins,Therapeutic [Multivitamin] 1 tab PO DAILY 09/01/19 Omeprazole Magnesium [Prilosec Otc] 20 mg PO DAILY 09/01/19 Progesterone, Micronized [Progesterone] 400 mg PO DAILY 09/01/19 Psyllium Husk [Fiber] 0.52 gm PO DAILY 09/01/19 traZODone [Desyrel] 300 mg PO QHS PRN PRN 09/01/19 Nortriptyline HCl [Pamelor] 150 mg PO QHS #0 09/05/19 Primary Care Physician: Care Physician,No Primary [Primary Care Provider] - Please follow up with your Primary Care Physician in: On 09/05/2019 for initiation of Librium taper as outpatient Test Results: Test results from this visit will be discussed in further detail at your follow- up appointment, if applicable. Proposed Discharge Date: 09/05/19
--- NOTE | 2019-09-05 09:48 | CASEMGMT ---
RN LUDA NOTE: D/C order in. Noted No PCP listed on demographics. This RN CM to room to talk with pt. Introduced self and role of RN LUDA. Pt reports she does have a PCP, Dr Alex Almodovar, @ [facility] in [place], [place]. Pt states she had an appt for today, and her is currently on the phone at this time rescheduling appt. Registration called to have pt's PCP entered into pt's chart. Heidy YOUN RN CM
== END 2019-09-05 11:00 | disposition home or self-care (01) | DRG 897 ==
LOC: ED 16:39 → MS3 17:13
PROVIDERS: Admitting Provider Student in an Organized Health Care Education/Training Program; Emergency Provider Emergency Medicine; PCP Family Medicine; Referring Provider Student in an Organized Health Care Education/Training Program; Visit Provider Internal Medicine
DX: F13.239 Sedative, hypnotic or anxiolytic dependence with withdrawal, unspecified (principal); Z68.31 Body mass index [BMI] 31.0-31.9, adult; E66.9 Obesity, unspecified; F41.8 Other specified anxiety disorders
CPT/HCPCS: 36415; 80048; 80307; 80320; 83735; 85025; 85027; 99284; 99406; J7030; A4216; G0480; J2405

== ENCOUNTER 2020-07-01 21:00 | Inpatient (IN) | payer OTHER, SELFPAY ==
[2019-09-01 17:38] VITALS: BMI 31.0
[2020-07-01 21:01] VITALS: BP 111/52; PULSE 112; RESP 18; TEMP 36.7; O2SAT 99; BMI 31.1
--- NOTE | 2020-07-01 21:44 | ED.VISSUMM ---
- ER Visit Summary Date of Service: 07/01/20 Chief Complaint: Alcohol detox History of Present Illness: The patient is a 54 F who presents for alcohol detox. Patient states her last drink was yesterday. Patient states she feels shaky. Patient states she does not drink every day however. Patient states she missed her doses of nortriptyline, Xanax, trazodone, and Remeron last night. Patient thinks some of her symptoms are related to that. Patient does admit to some nausea and vomiting. Patient denies any seizures but states she feels like she might have 1. Patient denies any history of seizure disorder. Patient was admitted in August for benzodiazepine withdrawal. Patient states her will not take her home unless she goes through alcohol detox. Physical Examination: Vital signs are stable except for mild tachycardia of 112. Patient is afebrile. Patient is in no acute distress. Oral mucosa is pink and moist. Neck is supple. Trachea is midline. There is no JVD. Heart with regular and tachycardic. Lungs are clear and equal bilaterally. Abdomen is soft. Bowel sounds are normal. There is no tenderness. Cranial nerves II through XII are intact. There are no focal motor or sensory deficits. Test Results: CBC shows a slight leukocytosis of 11.7. Comprehensive metabolic profile was essentially within normal limits. Urine tox urine was negative. Serum alcohol level was 215. Emergency Department Course and Treatment: Patient was given a dose of Xanax initially. Patient then agreed to be admitted for alcohol detox. Patient was given a dose of trazodone here to help her sleep. Case was discussed with the hospitalist. He will admit the patient to his service. Patient understood and was agreeable with the plan. All questions were answered. Disposition: Admit to hospital Impression: 1. Alcohol dependence This note was generated with [employer] dictation software. It may contain incorrect words, spelling, and punctuation that were not noted in review of the chart prior to signing ED Disposition - Plan for ED Patient: Disposition: Acute Care Hospital [facility] Diagnosis: Alcohol dependence Referrals: [facility] Doctor,Out of [NON-STAFF] -
[2020-07-01 21:48] LABS: Absolute Lymphocyte Count 2.52 X10^3/uL (0.83-4.51); Absolute Neutrophil Count 8.3 X10^3/uL (2.0-7.7); Basophil# 0.08 X10^3/uL; Basophil% 0.7 % (0-1); Eosinophil# 0.02 X10^3/uL; Eosinophils% 0.2 % (0-5); Hematocrit 38.5 % (37-47); Hemoglobin 12.8 g/dL (12.0-15.0); Lymphocyte # 2.52 X10^3/ul (4.0); Lymphocyte % 21.6 % (19-41); Mean Corp Hgb Conc 33.2 g/dL (32-36); Mean Corpuscular Volume 90.4 fL (81-99); Mean Platelet Vol. 9.5 fl (6.2-12.0); Monocyte# 0.69 X10^3/uL; Monocyte% 5.9 % (0-10); NRBC Flagged by Analyzer 0 % (0-5); Neutrophil # 8.33 X10^3/uL (2.7-7.7); Neutrophil % 71.2 % (47-70); Platelet Count 235 K/mm3 (150-450); RBC Distribution Width CV 13.1 % (11.6-14.6); RBC Distribution Width SD 42.8 fl (35.1-43.9); Red Blood Count 4.26 M/mm3 (4.2-5.4); White Blood Count 11.7 K/mm3 (4.4-11.0)
[2020-07-01 21:58] LABS: Amphetamine Urine VISTA NEGATIVE (<1000 ng/mL); Barbiturate Urine VISTA NEGATIVE (< 200 ng/mL); Benzodiazepine Urine VISTA NEGATIVE (< 200 ng/mL); Cocaine Urine VISTA NEGATIVE (< 300 ng/mL); Ecstacy Urine VISTA NEGATIVE (< 500 ng/mL); Methadone Urine VISTA NEGATIVE (< 300 ng/mL); PCP Urine VISTA NEGATIVE (< 25 ng/mL); THC Urine VISTA NEGATIVE (< 50 ng/mL); Vista UDS pH Range 6
[2020-07-01] MEDS: ALPRAZolam 0.25 MG Tablet PO (22:01)
[2020-07-01 22:06] LABS: ALB/GLOB Ratio 1.2 RATIO (0.9-2.4); AST(SGOT) 57 U/L (15-37); Alanine Aminotransfer ALT/SGPT 60 U/L (13-56); Albumin, Serum 3.6 g/dL (3.2-5.0); Alkaline Phosphatase 64 U/L (45-117); Anion Gap 12 (5-15); BUN 7 mg/dL (7-18); BUN/Creat Ratio 8.5 RATIO (10-20); Calcium,Total 8.3 mg/dL (8.5-10.1); Chloride 106 mmol/L (98-107); Creatinine, Serum 0.82 mg/dL (0.55-1.02); EST Glomerular Filtration Rate 77 mL/min (>60); Est Glom Filt Rate - Afr Amer 93 mL/min (>60); Estimated Creatinine Clearance 73.42 ml/min; Glucose 116 mg/dL (74-106); Potassium 3.5 mmol/L (3.5-5.1); Protein, Total 6.6 g/dL (6.4-8.2); Sodium Level 141 mmol/L (136-145)
[2020-07-01 23:23] VITALS: BP 123/61; PULSE 110; RESP 16; TEMP 36.7; O2SAT 96
--- NOTE | 2020-07-01 23:23 | PCM.HP.STD ---
Problem List (1) Alcohol dependence Status: Acute (2) Orthostatic hypotension Status: Chronic (3) Benzodiazepine dependence Status: Acute History of Present Illness Date of Admission: 07/01/20 Chief Complaint: Alcohol detoxification. The patient is a 54 year old F with a significant history of chronic alcohol abuse; chronic benzodiazepine abuse and depression who presents emergency department with a desire to detoxify from alcohol. In the last 3 days patient has drank a gallon of whiskey. The last time he drank was on the morning of the day of admission. She feels she is withdrawing. She attributes her withdrawal feeling to have not taking her Xanax prior to presentation. She reports headache and insomnia. Patient fell 2 days ago because she was intoxicated. Of note patient was admitted at our hospital ([facility]) on 09/01/2019 and discharged on 09/05/2019 for benzodiazepine dependence. Past Medical History Past Medical History (Chronic Problems): Chronic Problems Orthostatic hypotension (Chronic) Allergies codeine Allergy (Verified 07/01/20 21:03) Itching Home Medications: Ambulatory Orders Medication Instructions Recorded Estradiol 1 mg PO DAILY 09/01/19 Omeprazole Magnesium [Prilosec Otc] 20 mg PO DAILY 09/01/19 Progesterone, Micronized 400 mg PO DAILY 09/01/19 [Progesterone] traZODone [Desyrel] 300 mg PO QHS PRN PRN 09/01/19 Mirtazapine [Remeron] 15 mg PO QHS 07/01/20 Nortriptyline HCl [Pamelor] 150 mg PO QHS 07/02/20 Sertraline HCl [Zoloft] 25 mg PO DAILY 07/02/20 Surgical History: hysterectomy, - - Rotator cuff surgery Psychiatric History: No pertinent psych hx [employer] History: No pertinent [employer] O[employer] history Smoking Status: Former smoker Alcohol: Heavy - *Family History Maternal History Items: Dementia Paternal History Items: Cancer - HER father from leukemia Review of Systems Constitutional: Denies: Chills, Fever, Weight Change HEENT: Reports: Head Aches. Denies: Sinus Congestion, Sinus Drainage Cardiovascular: Denies: Chest Pain, Palpitations Respiratory: Denies: Cough, Shortness of breath at rest, Sputum production Gastrointestinal: Denies: Abdominal Pain, Nausea, Vomiting Genitourinary: Denies: Dysuria Musculoskeletal: Denies: Joint Pain, Joint Tenderness Skin: Denies: Rash, Wounds Neurological: Denies: Numbness, Tingling, Focal weakness Psychiatric: Reports: Depression. Denies: Anxiety, Homicidal Ideations, Suicidal Ideations Hematologic/ Lymphatic: Denies: Easy Bruising, Easy Bleeding VTE Information - Inpt Only VTE Present on Admission: No VTE Mechan Device Prophylaxis: None VTE Pharm Prophylaxis ordered?: Yes Patient Problems: Active and Suspected Problems Alcohol dependence (Acute) Benzodiazepine dependence (Acute) - Physical Exam Vitals/I&O's: Vital Signs Temp Pulse Resp BP Pulse Ox 98.0 F 110 H 16 123/61 H 96 07/01/20 23:23 07/01/20 23:23 07/01/20 23:23 07/01/20 23:23 07/01/20 23:23 Oxygen Delivery Method Room Air Weight: 87.4 kg Body Mass Index (BMI) 31.1 General: Alert, Oriented x3, Cooperative HEENT: Atraumatic, PERRLA, EOMI, Normocephalic Neck: Supple, No JVD, Negative Carotid Bruits Lungs: Clear to auscultation, Normal air movement Cardiovascular: Regular rate, Normal S1, Normal S2, No murmurs Abdomen: Bowel Sounds Present, Soft, Non Tender Extremities: No edema, Capillary Refill Less than 3 Seconds Skin: No rashes, No breakdown, - - Erythema on forehead left supra orbital area and on face. Musculoskeletal: No Tenderness to Palpation of Joints or Extremities Neurological: Cranial nerves II-XII grossly intact, - - Tremulousness Psych/Mental Status: Anxious Laboratory Results 07/01/20 21:22: Ethyl Alcohol 215.0 07/01/20 21:35: Urine Opiates Screen NEGATIVE, Urine Methadone Screen NEGATIVE, Ur Barbiturates Screen NEGATIVE, Ur Phencyclidine Scrn NEGATIVE, Ur Amphetamines Screen NEGATIVE, U Methamphetamin-MDMA NEGATIVE, U Benzodiazepines Scrn NEGATIVE, Urine Cocaine Screen NEGATIVE, U Cannabinoids Screen NEGATIVE, Ur Drug Screen Comment 07/01/20 21:40: WBC 11.7 H, RBC 4.26, Hgb 12.8, Hct 38.5, MCV 90.4, MCH 30.0, MCHC 33.2, RDW Std Deviation 42.8, RDW Coeff of Latonya 13.1, Plt Count 235, MPV 9.5, Immature Gran % (Auto) 0.400, Neut % (Auto) 71.2 H, Lymph % (Auto) 21.6, [place] % (Auto) 5.9, Eos % (Auto) 0.2, Baso % (Auto) 0.7, Absolute Neuts (auto) 8.3 H, Absolute Lymphs (auto) 2.52, Nucleated RBC % 0 07/01/20 21:40: Sodium 141, Potassium 3.5, Chloride 106, Carbon Dioxide 23.0, Anion Gap 12, BUN 7, Creatinine 0.82, Estim Creat Clear Calc 73.42, Est GFR (MDRD) Af Amer 93, Est GFR (MDRD) Non-Af 77, BUN/Creatinine Ratio 8.5 L, Glucose 116 H, Calcium 8.3 L, Total Bilirubin 0.50, AST 57 H, ALT 60 H, Alkaline Phosphatase 64, Total Protein 6.6, Albumin 3.6, Globulin 3.0, Albumin/Globulin Ratio 1.2 Assessment/Plan All Active Problems Alcohol dependence (Acute) Benzodiazepine dependence (Acute) Alcohol and benzo withdrawal Received trazodone and Xanax at emergency department. Will start patient on phenobarbital taper and with other adjunctive medications. Counseled. Neutrophilic Leukocytosis ED labs reviewed showed WBC of 11.7 with neutrophilic predominance Trend Insomnia Trazodone continued Depression Nortriptyline continued. Elevated liver enzymes: AST and ALT are elevated; mild. Not in the pattern of 2:1. Likely alcoholism or fatty liver disease Longitudinal follow up recommended DVT prophylaxis Subcutaneous Lovenox. Inpatient E&M: 51728 Init Hosp L3
[2020-07-01 23:24] VITALS: BP 123/61; PULSE 110; RESP 16; O2SAT 96
[2020-07-01] MEDS: traZODone 50 MG Tablet PO (23:33)
[2020-07-01 23:54] VITALS: BMI 32.8
[2020-07-02 00:19] VITALS: O2SAT 96
[2020-07-02] MEDS: Phenobarbital 32.4 MG Tablet PO ×6 (00:37→20:25)
[2020-07-02] MEDS: hydrOXYzine PAM 25 MG Capsule 50 MG PO ×3 (00:38→11:02)
[2020-07-02] MEDS: Acetaminophen 325 MG Tablet 650 MG PO ×2 (00:38→09:09)
--- NOTE | 2020-07-02 01:01 | NURSING ---
During admission questions, patient appeared very tearful. She states she is very embarrassed with her drinking situation but when you have a demented mother and a not so nice .... Patient's nurse came to this RN after doing head to toe assessment and thought that patient had many bruises for just falling at home Case management consult entered.
[2020-07-02] MEDS: Ondansetron 8 MG Tablet PO (01:03)
[2020-07-02] MEDS: traZODone 100 MG Tablet 300 MG PO ×2 (01:20→22:10)
[2020-07-02] MEDS: Nortriptyline 25 MG Capsule 150 MG PO ×2 (01:50→22:10)
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
[2020-07-02] MEDS: Pantoprazole Sodium 20 MG Tablet PO ×2 (02:25→22:10)
[2020-07-02] MEDS: Dicyclomine 10 MG Capsule 20 MG PO (03:43)
[2020-07-02] MEDS: Gabapentin 300 MG Capsule PO (06:17)
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
[2020-07-02 07:32] LABS: Absolute Lymphocyte Count 2.27 X10^3/uL (0.83-4.51); Absolute Neutrophil Count 6.8 X10^3/uL (2.0-7.7); Basophil# 0.07 X10^3/uL; Basophil% 0.7 % (0-1); Eosinophil# 0.01 X10^3/uL; Eosinophils% 0.1 % (0-5); Hematocrit 36.7 % (37-47); Hemoglobin 12.3 g/dL (12.0-15.0); Lymphocyte # 2.27 X10^3/ul (4.0); Mean Corp Hgb Conc 33.5 g/dL (32-36); Mean Corpuscular Hgb 29.9 pg (27.0-32.0); Mean Corpuscular Volume 89.1 fL (81-99); Monocyte# 0.69 X10^3/uL; NRBC Flagged by Analyzer 0 % (0-5); Neutrophil # 6.76 X10^3/uL (2.7-7.7); Neutrophil % 68.7 % (47-70); Platelet Count 238 K/mm3 (150-450); RBC Distribution Width SD 42.3 fl (35.1-43.9); Red Blood Count 4.12 M/mm3 (4.2-5.4); White Blood Count 9.9 K/mm3 (4.4-11.0)
[2020-07-02 08:17] LABS: Anion Gap 11 (5-15); BUN 7 mg/dL (7-18); BUN/Creat Ratio 7.9 RATIO (10-20); Calcium,Total 8.4 mg/dL (8.5-10.1); Chloride 104 mmol/L (98-107); Creatinine, Serum 0.88 mg/dL (0.55-1.02); EST Glomerular Filtration Rate 71 mL/min (>60); Est Glom Filt Rate - Afr Amer 85 mL/min (>60); Estimated Creatinine Clearance 60.46 ml/min; Glucose 104 mg/dL (74-106); Potassium 3.7 mmol/L (3.5-5.1); Sodium Level 138 mmol/L (136-145)
[2020-07-02 08:19] LABS: Magnesium 1.5 mg/dL (1.6-2.6); Phosphorus 3.3 mg/dL (2.5-4.9)
[2020-07-02 08:31] VITALS: O2SAT 97
[2020-07-02 09:00] VITALS: BP 110/61; PULSE 114; RESP 16; TEMP 37.3; O2SAT 98
[2020-07-02] MEDS: LORazepam 1 MG Tablet 2 MG PO (09:01)
[2020-07-02] MEDS: Estradiol 1 MG Tablet PO (09:02)
[2020-07-02] MEDS: Sertraline 50 MG Tablet 25 MG PO (09:02)
[2020-07-02] MEDS: Thiamine Hydrochloride 100 MG Tablet PO (09:02)
[2020-07-02] MEDS: Folic Acid 1 MG Tablet PO (09:02)
[2020-07-02] MEDS: Senna Tablet 2 TABLET PO (09:09)
[2020-07-02] MEDS: 0.9% Saline Lock 10 ML Syringe IV ×3 (09:11→18:07)
[2020-07-02] MEDS: 0.9% Normal Saline 1,000 ML 999 ML IV (09:12)
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
[2020-07-02 17:00] VITALS: BP 134/80; PULSE 113; RESP 16; TEMP 37; O2SAT 98
[2020-07-02 20:23] VITALS: BP 125/71; PULSE 104; RESP 18; TEMP 36.9; O2SAT 97
[2020-07-02] MEDS: Mirtazapine 15 MG Tablet PO (22:10)
[2020-07-03] VITALS (7 sets, daily range): BP systolic 120–151; BP diastolic 72–93; PULSE 97–121; RESP 16–20; TEMP 36.4–37.1; O2SAT 96–100
[2020-07-03] MEDS: Phenobarbital 32.4 MG Tablet PO ×6 (01:03→21:13)
--- NOTE | 2020-07-03 07:08 | PN_ITS ---
Patient Problems: Active and Suspected Problems Alcohol dependence (Acute) Benzodiazepine dependence (Acute) Subjective: Patient overnight with no acute events per self and per nursing report. She has significant improvement in tremors and hallucinations. She feels as though her body is improved from her prior withdrawal symptoms but note that she is more anxious. She is tearful several times during the evaluation. She notes she wants to speak to her . Discussed importance of her working on her self and noted intention for aggressive follow-up therapy. Patient denies fevers, chills, nausea, emesis, abdominal pain, chest pain or dyspnea. Objective: Physical Examination: General: awake, alert, oriented x 3 and cooperative, seated upright in the medical surgical bed, improved appearance, admitting to anxiety. Skin: normal color, turgor, no icterus, cyanosis except notable staged ec chymoses to the face as well as thorax, specifically very tender to the left breast. HEENT: AT/NC, EOMI, PERRLA, dry MM. Lungs: Diminished breath sounds, greater bilateral bases, no rales, ronchi or w heezing. Heart: Improved, regular with regular rhythm; no gallop, rub audible. Abdomen: soft, NTTP, ND, normal BS. Extremities: no cyanosis, clubbing, or edema. Neurological: patient awake, alert, oriented as noted; cognitive function near baseline intact; pupils equally reactive to light and accomodation; cranial nerves II-XII grossly normal, moving all 4 extremities, no focal deficits, strength improving, mildly to moderately global decrease secondary to acute presentation. Psychiatric: affect appears anxious, tearful, discussed importance of continuing with therapy, admits to depressive feelings, no SI. Vitals/I&O's: Vital Signs Temp Pulse Resp BP Pulse Ox 98 F 97 16 145/72 H 96 07/03/20 05:34 07/03/20 05:34 07/03/20 05:34 07/03/20 05:34 07/03/20 05:34 Oxygen Delivery Method Room Air Weight: 185 lb 6.54 oz Body Mass Index (BMI) 32.8 Intake and Output for Last 24 Hours 07/01/20 07/02/20 07/03/20 23:59 23:59 23:59 Intake Total 2354 / 2754 700 / 700 Balance 2354 / 2754 700 / 700 Laboratory Results 07/02/20 07:00: WBC 9.9, RBC 4.12 L, Hgb 12.3, Hct 36.7 L, MCV 89.1, MCH 29.9, MCHC 33.5, RDW Std Deviation 42.3, RDW Coeff of Latonya 13.0, Plt Count 238, MPV 10.0, Immature Gran % (Auto) 0.500, Neut % (Auto) 68.7, Lymph % (Auto) 23.0, [place] % (Auto) 7.0, Eos % (Auto) 0.1, Baso % (Auto) 0.7, Absolute Neuts (auto) 6.8, Absolute Lymphs (auto) 2.27, Nucleated RBC % 0 07/02/20 07:00: Sodium 138, Potassium 3.7, Chloride 104, Carbon Dioxide 23.0, Anion Gap 11, BUN 7, Creatinine 0.88, Estim Creat Clear Calc 60.46, Est GFR (MDRD) Af Amer 85, Est GFR (MDRD) Non-Af 71, BUN/Creatinine Ratio 7.9 L, Glucose 104, Calcium 8.4 L 07/02/20 07:00: Phosphorus 3.3, Magnesium 1.5 L Current Medications Acetaminophen (Acetaminophen 325 Mg Tablet) 650 mg PO Q6H PRN PRN PRN Reason: Pain Score 1-10/Temp > 100.7 F Last Admin: 07/02/20 09:09 Dose: 650 mg Documented by: Al Hydroxide/Mg Hydroxide (Mag Hydrox/Al Hydrox/Simeth 30 Ml Udc) 30 ml PO Q6H PRN PRN PRN Reason: dyspesia Bisacodyl (Bisacodyl 10 Mg Suppository) 10 mg RECTAL DAILY PRN PRN Reason: Constipation Dicyclomine HCl (Dicyclomine 10 Mg Capsule) 20 mg PO Q6H PRN PRN PRN Reason: abdominal discomfort Last Admin: 07/02/20 03:43 Dose: 20 mg Documented by: Estradiol (Estradiol 1 Mg Tablet) 1 mg PO DAILY [facility] Last Admin: 07/02/20 09:02 Dose: 1 mg Documented by: Folic Acid (Folic Acid 1 Mg Tablet) 1 mg PO DAILY@0800 [facility] Last Admin: 07/02/20 09:02 Dose: 1 mg Documented by: Gabapentin (Gabapentin 300 Mg Capsule) 300 mg PO Q8H PRN PRN PRN Reason: moderate to severe anxiety Last Admin: 07/02/20 06:17 Dose: 300 mg Documented by: Hydroxyzine Pamoate (Hydroxyzine Tanika 25 Mg Capsule) 50 mg PO Q4H PRN PRN PRN Reason: mild anxiety Last Admin: 07/02/20 11:02 Dose: 50 mg Documented by: Ibuprofen (Ibuprofen 600 Mg Tablet) 600 mg PO Q8H PRN PRN PRN Reason: Pain Score 1-10 Loperamide HCl (Loperamide 2 Mg Capsule) 2 mg PO Q4H PRN PRN PRN Reason: LOOSE STOOLS Lorazepam (Lorazepam 1 Mg Tablet) 2 mg PO Q2H PRN PRN; Protocol PRN Reason: CIWA score > 8 but <15 Last Admin: 07/02/20 09:01 Dose: 2 mg Documented by: Lorazepam (Lorazepam 1 Mg Tablet) 2 mg PO UD PRN; Protocol PRN Reason: CIWA score >/=15. Lorazepam (Lorazepam 2 Mg/Ml Syringe) 2 mg IV Q2H PRN PRN; Protocol PRN Reason: CIWA score > 8 but <15 Lorazepam (Lorazepam 2 Mg/Ml Syringe) 2 mg IV UD PRN; Protocol PRN Reason: CIWA score >/=15. Mirtazapine (Mirtazapine 15 Mg Tablet) 15 mg PO QHS [facility] Last Admin: 07/02/20 22:10 Dose: 15 mg Documented by: Multivitamins/Minerals (Multivitamins,Ther W-Minerals Tablet) 1 tablet PO DAILYCM [facility] Nortriptyline HCl (Nortriptyline 25 Mg Capsule) 150 mg PO QHS [facility] Last Admin: 07/02/20 22:10 Dose: 150 mg Documented by: Ondansetron HCl (Ondansetron 8 Mg Tablet) 8 mg PO Q8H PRN PRN PRN Reason: NAUSEA Last Admin: 07/02/20 01:03 Dose: 8 mg Documented by: Pantoprazole Sodium (Pantoprazole Sodium 20 Mg Tablet) 20 mg PO DAILY@2200 [facility] Last Admin: 07/02/20 22:10 Dose: 20 mg Documented by: Phenobarbital (Phenobarbital 32.4 Mg Tablet) 97.2 mg PO Q4H [facility]; Taper Stop: 07/06/20 08:59 Last Admin: 07/03/20 05:35 Dose: 97.2 mg Documented by: Senna (Senna Tablet) 2 tablet PO QHS PRN PRN Reason: Constipation Last Admin: 07/02/20 09:09 Dose: 2 tablet Documented by: Sertraline HCl (Sertraline 50 Mg Tablet) 25 mg PO DAILY [facility] Last Admin: 07/02/20 09:02 Dose: 25 mg Documented by: Sodium Chloride (0.9% Saline Lock 10 Ml Syringe) 10 - 40 ml IV UD PRN PRN Reason: SALINE FLUSH Last Admin: 07/02/20 18:07 Dose: 10 ml Documented by: Thiamine HCl (Thiamine Hydrochloride 100 Mg Tablet) 100 mg PO DAILYCM [facility] Last Admin: 07/02/20 09:02 Dose: 100 mg Documented by: Trazodone HCl (Trazodone 100 Mg Tablet) 300 mg PO QHS PRN PRN PRN Reason: SLEEP Last Admin: 07/02/20 22:10 Dose: 300 mg Documented by: STROKE Vital Signs/Narrative: Vital Signs Temp Pulse Resp BP Pulse Ox 07/03/20 05:34 98 F 97 16 145/72 H 96 Medical Necessity - Tobacco Use Smoking Status: Former smoker Assessment/Plan All Active Problems Alcohol dependence (Acute) Benzodiazepine dependence (Acute) The patient is a 54 y/o F w/ PMHx: EtOH Abuse, Anxiety and Depression with core shaper yani BZD usage, GERD, Obesity who presents to the [facility] ED on 07/01/20 with history of significant recent falls secondary to increase in her alcohol intake with request for alcohol detoxification. 1. Acute EtOH Withdrawal: She admitted to medical surgical floor, routine ED labs obtained, given interest in sobriety patient was initiated and continued on on protocol with taper course of Phenobarbital, scheduled gabapentin for seizure prophylaxis, as needed Catapres, Bentyl, Vistaril, IV fluids, IV antiemetics, Tylenol as needed for pain. Given significant symptoms noted upon reevaluation 07/02/2020 will add overlapping CIWA protocol. Will consult Case management for assistance for transition to next level of rehabilitation care. Mag, phos obtained with magnesium noted to be 1.5 with supplementation administered. Maintain on CIWA protocol concurrently. Patient notes that alcohol is a significant coping mechanism for her secondary to her underlying anxiety and depression and is amenable to therapy. Discussed with case management and charge nurse the importance of patient having scheduled follow-up therapy sessions in addition to substance abuse treatment. 2. Anxiety and depression: We will continue patient home Remeron, sertraline regimen although patient notes that she normally takes Xanax 0.5 mg daily as significant concern for abuse, patient admitting to underlying anxiety and depression ongoing, tearful during evaluation, amenable to aggressive therapy in addition to substance abuse treatment per 180. Case management updated on the importance of this. 3. Former tobacco use: Encourage continued tobacco cessation. 4. Obesity: Weight loss and lifestyle changes encouraged. 5. GERD: We will maintain on PPI. 6. DVT prophylaxis: Low risk, encourage ambulation once improving. Inpatient E&M: 64498 Subs Hosp L2
[2020-07-03] MEDS: Acetaminophen 325 MG Tablet 650 MG PO (08:31)
[2020-07-03] MEDS: hydrOXYzine PAM 25 MG Capsule 50 MG PO ×2 (08:31→16:31)
[2020-07-03] MEDS: Ondansetron 8 MG Tablet PO (08:32)
[2020-07-03] MEDS: LORazepam 1 MG Tablet 2 MG PO ×2 (08:32→16:31)
[2020-07-03] MEDS: Dicyclomine 10 MG Capsule 20 MG PO (08:32)
[2020-07-03] MEDS: Thiamine Hydrochloride 100 MG Tablet PO (08:33)
[2020-07-03] MEDS: Multivitamins,Ther W-Minerals Tablet 1 TABLET PO (08:33)
[2020-07-03] MEDS: Estradiol 1 MG Tablet PO (08:33)
[2020-07-03] MEDS: Sertraline 50 MG Tablet 25 MG PO (08:34)
[2020-07-03] MEDS: Folic Acid 1 MG Tablet PO (08:35)
[2020-07-03] MEDS: Nortriptyline 25 MG Capsule 150 MG PO (21:13)
[2020-07-03] MEDS: Pantoprazole Sodium 20 MG Tablet PO (21:13)
[2020-07-03] MEDS: Mirtazapine 15 MG Tablet PO (21:13)
[2020-07-04] VITALS (7 sets, daily range): BP systolic 102–145; BP diastolic 56–92; PULSE 79–105; RESP 16–18; TEMP 36.6–37.2; O2SAT 95–98
[2020-07-04] MEDS: Phenobarbital 32.4 MG Tablet PO ×5 (01:13→20:50)
[2020-07-04] MEDS: 0.9% Saline Lock 10 ML Syringe IV (04:50)
--- NOTE | 2020-07-04 07:16 | PCM.PN.HOSP ---
Patient Problems: Active and Suspected Problems Alcohol dependence (Acute) Benzodiazepine dependence (Acute) Subjective: Patient remains free of withdrawal symptoms but continues with emotional lability. Intermittent crying following discussions. Some of her primary concerns are whether or not her will still love her and also if she is able to potentially keep her job at the [employer] in [place]. She notes she blacked out for 4 days and did not go to work which is not like her but she had been escalating her intake. Patient initially wanting to leave to go home but following lengthy discussion willing to remain to assure a very aggressive discharge plan including therapy for her underlying severe anxiety which contributes to her drinking. Patient denies fevers, chills, nausea, emesis, abdominal pain, chest pain or dyspnea. Objective: General: awake, alert, oriented x 3 and cooperative, seated upright in the medical surgical bed, sterile symptoms, ongoing anxiety, tearful. Skin: normal color, turgor, no icterus, cyanosis except notable staged ecchymoses to the face as well as thorax, specifically very tender to the left breast. HEENT: AT/NC, EOMI, PERRLA, dry MM. Lungs: Diminished breath sounds, greater bilateral bases, no rales, ronchi or wheezing. Heart: Improved, regular with regular rhythm; no gallop, rub audible. Abdomen: soft, NTTP, ND, normal BS. Extremities: no cyanosis, clubbing, or edema. Neurological: patient awake, alert, oriented as noted; cognitive function near baseline intact; pupils equally reactive to light and accomodation; cranial nerves II-XII grossly normal, moving all 4 extremities, no focal deficits, strength improving, near preserved. Psychiatric: affect appears somewhat improved from day prior, still anxious and tearful but feel as though she is adjusting and willing to undergo therapy. Vitals/I&O's: Vital Signs Temp Pulse Resp BP Pulse Ox 97.9 F 98 16 102/69 98 07/04/20 04:47 07/04/20 04:47 07/04/20 04:47 07/04/20 04:47 07/04/20 04:47 Oxygen Delivery Method Room Air Weight: 185 lb 6.54 oz Body Mass Index (BMI) 32.8 Intake and Output for Last 24 Hours 07/02/20 07/03/20 07/04/20 23:59 23:59 23:59 Intake Total 2354 / 2754 1400 / 1600 700 / 700 Balance 2354 / 2754 1400 / 1600 700 / 700 Current Medications Acetaminophen (Acetaminophen 325 Mg Tablet) 650 mg PO Q6H PRN PRN PRN Reason: Pain Score 1-10/Temp > 100.7 F Last Admin: 07/03/20 08:31 Dose: 650 mg Documented by: Al Hydroxide/Mg Hydroxide (Mag Hydrox/Al Hydrox/Simeth 30 Ml Udc) 30 ml PO Q6H PRN PRN PRN Reason: dyspesia Bisacodyl (Bisacodyl 10 Mg Suppository) 10 mg RECTAL DAILY PRN PRN Reason: Constipation Dicyclomine HCl (Dicyclomine 10 Mg Capsule) 20 mg PO Q6H PRN PRN PRN Reason: abdominal discomfort Last Admin: 07/03/20 08:32 Dose: 20 mg Documented by: Estradiol (Estradiol 1 Mg Tablet) 1 mg PO DAILY [facility] Last Admin: 07/03/20 08:33 Dose: 1 mg Documented by: Folic Acid (Folic Acid 1 Mg Tablet) 1 mg PO DAILY@0800 [facility] Last Admin: 07/03/20 08:35 Dose: 1 mg Documented by: Gabapentin (Gabapentin 300 Mg Capsule) 300 mg PO Q8H PRN PRN PRN Reason: moderate to severe anxiety Last Admin: 07/02/20 06:17 Dose: 300 mg Documented by: Hydroxyzine Pamoate (Hydroxyzine Tanika 25 Mg Capsule) 50 mg PO Q4H PRN PRN PRN Reason: mild anxiety Last Admin: 07/03/20 16:31 Dose: 50 mg Documented by: Ibuprofen (Ibuprofen 600 Mg Tablet) 600 mg PO Q8H PRN PRN PRN Reason: Pain Score 1-10 Loperamide HCl (Loperamide 2 Mg Capsule) 2 mg PO Q4H PRN PRN PRN Reason: LOOSE STOOLS Lorazepam (Lorazepam 1 Mg Tablet) 2 mg PO Q2H PRN PRN; Protocol PRN Reason: CIWA score > 8 but <15 Last Admin: 07/03/20 16:31 Dose: 2 mg Documented by: Lorazepam (Lorazepam 1 Mg Tablet) 2 mg PO UD PRN; Protocol PRN Reason: CIWA score >/=15. Lorazepam (Lorazepam 2 Mg/Ml Syringe) 2 mg IV Q2H PRN PRN; Protocol PRN Reason: CIWA score > 8 but <15 Lorazepam (Lorazepam 2 Mg/Ml Syringe) 2 mg IV UD PRN; Protocol PRN Reason: CIWA score >/=15. Mirtazapine (Mirtazapine 15 Mg Tablet) 15 mg PO QHS [facility] Last Admin: 07/03/20 21:13 Dose: 15 mg Documented by: Multivitamins/Minerals (Multivitamins,Ther W-Minerals Tablet) [facility] Last Admin: 07/03/20 08:33 Dose: 1 tablet Documented by: Nortriptyline HCl (Nortriptyline 25 Mg Capsule) 150 mg PO QHS [facility] Last Admin: 07/03/20 21:13 Dose: 150 mg Documented by: Ondansetron HCl (Ondansetron 8 Mg Tablet) 8 mg PO Q8H PRN PRN PRN Reason: NAUSEA Last Admin: 07/03/20 08:32 Dose: 8 mg Documented by: Pantoprazole Sodium (Pantoprazole Sodium 20 Mg Tablet) 20 mg PO DAILY@2200 [facility] Last Admin: 07/03/20 21:13 Dose: 20 mg Documented by: Phenobarbital (Phenobarbital 32.4 Mg Tablet) 64.8 mg PO Q4H [facility]; Taper Stop: 07/06/20 08:59 Last Admin: 07/04/20 04:49 Dose: 64.8 mg Documented by: Senna (Senna Tablet) 2 tablet PO QHS PRN PRN Reason: Constipation Last Admin: 07/02/20 09:09 Dose: 2 tablet Documented by: Sertraline HCl (Sertraline 50 Mg Tablet) 25 mg PO DAILY [facility] Last Admin: 07/03/20 08:34 Dose: 25 mg Documented by: Sodium Chloride (0.9% Saline Lock 10 Ml Syringe) 10 - 40 ml IV UD PRN PRN Reason: SALINE FLUSH Last Admin: 07/04/20 04:50 Dose: 10 ml Documented by: Thiamine HCl (Thiamine Hydrochloride 100 Mg Tablet) [facility] Last Admin: 07/03/20 08:33 Dose: 100 mg Documented by: Trazodone HCl (Trazodone 100 Mg Tablet) 300 mg PO QHS PRN PRN PRN Reason: SLEEP Last Admin: 07/02/20 22:10 Dose: 300 mg Documented by: STROKE Vital Signs/Narrative: Vital Signs Temp Pulse Resp BP Pulse Ox 07/04/20 04:47 97.9 F 98 16 102/69 98 Medical Necessity - Tobacco Use Smoking Status: Former smoker Assessment/Plan All Active Problems Alcohol dependence (Acute) Benzodiazepine dependence (Acute) The patient is a 54 y/o F w/ PMHx: EtOH Abuse, Anxiety and Depression with chronic BZD usage, GERD, Obesity who presents to the [facility] ED on 07/01/20 with history of significant recent falls secondary to increase in her alcohol intake with request for alcohol detoxification. 1. Acute EtOH Withdrawal: She admitted to medical surgical floor, routine ED labs obtained, given interest in sobriety patient was initiated and continued on on protocol with taper course of Phenobarbital, scheduled gabapentin for seizure prophylaxis, as needed Catapres, Bentyl, Vistaril, IV fluids, IV antiemetics, Tylenol as needed for pain. Given significant symptoms noted upon reevaluation 07/02/2020 will add overlapping CIWA protocol. Will consult Case management for assistance for transition to next level of rehabilitation care. Mag, phos obtained with magnesium noted to be 1.5 with supplementation administered. Maintain on CIWA protocol concurrently. Patient notes that alcohol is a significant coping mechanism for her secondary to her underlying anxiety and depression and is amenable to therapy. Patient 07/04/2020 requesting to be discharged to home however it lengthy discussions undertaken and willing to remain as patient needs aggressive follow-up with 180 and therapy as anxiety strong reason for her alcohol intake. 2. Anxiety and depression: We will continue patient home Remeron, sertraline regimen. Upon admission Xanax 0.5 mg daily discontinued per admitting physician secondary to concern for abuse potential. Patient admitting to underlying anxiety and depression ongoing, tearful during evaluation, amenable to aggressive therapy in addition to substance abuse treatment per 180. Case management aware of her underlying severe anxiety and depression and need to control this with medications and also therapy. Patient not on Xanax 0.5 mg daily currently and will continue to remain off this regimen, patient amenable and strongly denies any Xanax abuse thus withdrawal of this agent less of a concern. Will however need close follow-up with her physician. 3. Former tobacco use: Encourage continued tobacco cessation. 4. Obesity: Weight loss and lifestyle changes encouraged. 5. GERD: We will maintain on PPI. 6. DVT prophylaxis: Low risk, encourage ambulation once improving. Inpatient E&M: 79678 Subs Hosp L2
[2020-07-04] MEDS: Folic Acid 1 MG Tablet PO (09:19)
[2020-07-04] MEDS: LORazepam 1 MG Tablet 2 MG PO ×2 (09:19→14:11)
[2020-07-04] MEDS: Multivitamins,Ther W-Minerals Tablet 1 TABLET PO (09:20)
[2020-07-04] MEDS: Thiamine Hydrochloride 100 MG Tablet PO (09:20)
[2020-07-04] MEDS: Sertraline 50 MG Tablet 25 MG PO (09:21)
[2020-07-04] MEDS: Estradiol 1 MG Tablet PO (09:21)
[2020-07-04] MEDS: hydrOXYzine PAM 25 MG Capsule 50 MG PO (14:11)
[2020-07-04] MEDS: Gabapentin 300 MG Capsule PO (18:03)
[2020-07-04] MEDS: Nortriptyline 25 MG Capsule 150 MG PO (20:52)
[2020-07-04] MEDS: Mirtazapine 15 MG Tablet PO (20:52)
[2020-07-04] MEDS: Acetaminophen 325 MG Tablet 650 MG PO (20:58)
[2020-07-04] MEDS: Pantoprazole Sodium 20 MG Tablet PO (20:59)
[2020-07-05 02:50] VITALS: BP 134/69; PULSE 89; RESP 16; TEMP 36.6; O2SAT 97
[2020-07-05] MEDS: Phenobarbital 32.4 MG Tablet PO ×2 (02:52→08:31)
[2020-07-05] MEDS: hydrOXYzine PAM 25 MG Capsule 50 MG PO ×2 (02:55→08:39)
[2020-07-05] MEDS: Estradiol 1 MG Tablet PO (08:31)
[2020-07-05] MEDS: Multivitamins,Ther W-Minerals Tablet 1 TABLET PO (08:31)
[2020-07-05] MEDS: Sertraline 50 MG Tablet 25 MG PO (08:31)
[2020-07-05] MEDS: Folic Acid 1 MG Tablet PO (08:31)
[2020-07-05] MEDS: Thiamine Hydrochloride 100 MG Tablet PO (08:31)
[2020-07-05 08:50] VITALS: BP 124/77; PULSE 113; RESP 18; TEMP 36.9; O2SAT 96
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
--- NOTE | 2020-07-05 10:51 | PCM.DC ---
- Discharge Diagnoses Current Active Problems: Current Active and Chronic Problems Alcohol dependence (Acute) Orthostatic hypotension (Chronic) Benzodiazepine dependence (Acute) You will use the following diet at home:: Regular Your food should be the consistency of: Regular Discharge Activity: May Not Drive Call your doctor if you observe: Fever of 101 or Higher, Numbness or Tingling, Change in Color, Inability to have a bowel movement, Using more than one pad per hour, Shortness of breath, Dizziness, Fainting spells, Swelling in the ankles, Chest pain, Prolonged hiccoughing, Increased palpitations (irregular heartbeat), Calf discomfort, Uncontrolled pain Allergies/Adverse Reactions: Allergies codeine Allergy (Verified 07/01/20 21:03) Itching Medications to take at Discharge Estradiol 1 mg PO DAILY 09/01/19 Omeprazole Magnesium [Prilosec Otc] 20 mg PO DAILY 09/01/19 Progesterone, Micronized [Progesterone] 400 mg PO DAILY 09/01/19 traZODone [Desyrel] 300 mg PO QHS PRN PRN 09/01/19 Mirtazapine [Remeron] 15 mg PO QHS 07/01/20 Nortriptyline HCl [Pamelor] 150 mg PO QHS 07/02/20 Sertraline HCl [Zoloft] 25 mg PO DAILY 07/02/20 Folic Acid 1 mg PO DAILY@0800 #30 tab 07/05/20 Thiamine Hydrochloride [Vitamin B1] 100 mg PO DAILYCM #30 tab 07/05/20 The following prescriptions were given: Folic Acid 1 mg PO DAILY@0800 #30 tab Transmission Status: Pending to [id number] Thiamine Hydrochloride [Vitamin B1] 100 mg PO DAILYCM #30 tab Transmission Status: Pending to [id number] Primary Care Physician: [facility] [address] Doctor,Out of [NON-STAFF] - Please follow up with your Primary Care Physician in: in 1-2 weeks Test Results: Test results from this visit will be discussed in further detail at your follow-up appointment, if applicable. Please Follow Up With: Trish Martinez DO When: for alcohol use disorder
--- NOTE | 2020-07-05 10:53 | PCM.DC.SUM ---
Discharge Date and Diagnosis - Problem List Patient Problems: Active and Suspected Problems Alcohol dependence (Acute) Benzodiazepine dependence (Acute) Date of Admission: 07/01/20 Date of Discharge: 07/05/20 - Primary Discharge Diagnosis Acute Problems: Active Problems Alcohol dependence (Acute) Benzodiazepine dependence (Acute) - Secondary Discharge Diagnosis Chronic Problems: Chronic Problems Orthostatic hypotension (Chronic) Hospital Course and Treatment Summary of Care Provided: The patient is a 54 year old F with history of chronic alcohol use, anxiety and depression, chronic benzodiazepine use disorder was admitted with multiple recent falls secondary to alcohol intoxication. She was admitted as per alcohol withdrawal syndrome control program. Started on phenobarbital scheduled and taper course along with gabapentin Catapres, Bentyl, Vistaril and antiemetics. Patient symptoms are well controlled. Patient seen by [facility] sr. social media & mobile manager and is follow-up as an outpatient. Patient also has anxiety and depression and she is on Remeron, sertraline, trazodone as needed and nortriptyline. [] Heart rate and blood pressure are controlled. Patient is discharged on folic acid and thiamine Discharge medication reconciliation done. Discharge follow-up instructions completed. Discharge process discussed with the patient and all questions were answered to patient's satisfaction. Total time spent, exact 35 minutes on discharge meds reconciliation, examination, coordination of care with nurses and ancillary staff, review of imaging and blood test and discussion with the patient on follow-up instructions Patient Problems: Active and Suspected Problems Alcohol dependence (Acute) Benzodiazepine dependence (Acute) Objective: Seen and examined. Patient wants to go home. Heart rate and blood pressure controlled. No tremors. No nausea or vomiting. Patient has mild anxiety and restlessness otherwise no hallucinations/delusions or illusions Physical exam General: Alert, Oriented x3, Cooperative HEENT: Atraumatic, PERRLA, EOMI, Normocephalic Oral: No Gingival or Mucosal Lesions/ Ulcerations Neck: Supple, No JVD, Negative Carotid Bruits Lungs: Air entry equal in bilateral lung bases. No crepitation/rhonchi. Cardiovascular: Regular rate, Regular Rhythm, Normal S1, Normal S2, No murmurs Abdomen: Bowel Sounds Present, Soft, Non Tender, Non-Distended : No renal angle tenderness. No suprapubic tenderness. Extremities: No edema, Capillary Refill Less than 3 Seconds Skin: No rashes, No breakdown Musculoskeletal: No Tenderness to Palpation of Joints or Extremities Neurological: Cranial nerves II-XII grossly intact, Deep Tendon Reflexes 2+/4 and Symmetrical, Neuro grossly intact Psych/Mental Status: Normal Affect, Appropriate. - Physical Exam Vitals/I&O's: Vital Signs Temp Pulse Resp BP Pulse Ox 98.4 F 113 H 18 124/77 H 96 07/05/20 08:50 07/05/20 08:50 07/05/20 08:50 07/05/20 08:50 07/05/20 08:50 Oxygen Delivery Method Room Air Weight: 185 lb 6.54 oz Body Mass Index (BMI) 32.8 Intake and Output for Last 24 Hours 07/03/20 07/04/20 07/05/20 23:59 23:59 23:59 Intake Total 1400 / 1600 2450 / 2450 200 / 200 Balance 1400 / 1600 2450 / 2450 200 / 200 Current Medications Acetaminophen (Acetaminophen 325 Mg Tablet) 650 mg PO Q6H PRN PRN PRN Reason: Pain Score 1-10/Temp > 100.7 F Last Admin: 07/04/20 20:58 Dose: 650 mg Documented by: Al Hydroxide/Mg Hydroxide (Mag Hydrox/Al Hydrox/Simeth 30 Ml Udc) 30 ml PO Q6H PRN PRN PRN Reason: dyspesia Bisacodyl (Bisacodyl 10 Mg Suppository) 10 mg RECTAL DAILY PRN PRN Reason: Constipation Dicyclomine HCl (Dicyclomine 10 Mg Capsule) 20 mg PO Q6H PRN PRN PRN Reason: abdominal discomfort Last Admin: 07/03/20 08:32 Dose: 20 mg Documented by: Estradiol (Estradiol 1 Mg Tablet) 1 mg PO DAILY [facility] Last Admin: 07/05/20 08:31 Dose: 1 mg Documented by: Folic Acid (Folic Acid 1 Mg Tablet) 1 mg PO DAILY@0800 [facility] Last Admin: 07/05/20 08:31 Dose: 1 mg Documented by: Gabapentin (Gabapentin 300 Mg Capsule) 300 mg PO Q8H PRN PRN PRN Reason: moderate to severe anxiety Last Admin: 07/04/20 18:03 Dose: 300 mg Documented by: Hydroxyzine Pamoate (Hydroxyzine Tanika 25 Mg Capsule) 50 mg PO Q4H PRN PRN PRN Reason: mild anxiety Last Admin: 07/05/20 08:39 Dose: 50 mg Documented by: Ibuprofen (Ibuprofen 600 Mg Tablet) 600 mg PO Q8H PRN PRN PRN Reason: Pain Score 1-10 Loperamide HCl (Loperamide 2 Mg Capsule) 2 mg PO Q4H PRN PRN PRN Reason: LOOSE STOOLS Lorazepam (Lorazepam 1 Mg Tablet) 2 mg PO Q2H PRN PRN; Protocol PRN Reason: CIWA score > 8 but <15 Last Admin: 07/04/20 14:11 Dose: 2 mg Documented by: Lorazepam (Lorazepam 1 Mg Tablet) 2 mg PO UD PRN; Protocol PRN Reason: CIWA score >/=15. Lorazepam (Lorazepam 2 Mg/Ml Syringe) 2 mg IV Q2H PRN PRN; Protocol PRN Reason: CIWA score > 8 but <15 Lorazepam (Lorazepam 2 Mg/Ml Syringe) 2 mg IV UD PRN; Protocol PRN Reason: CIWA score >/=15. Mirtazapine (Mirtazapine 15 Mg Tablet) 15 mg PO QHS [facility] Last Admin: 07/04/20 20:52 Dose: 15 mg Documented by: Multivitamins/Minerals (Multivitamins,Ther W-Minerals Tablet) [facility] Last Admin: 07/05/20 08:31 Dose: 1 tablet Documented by: Nortriptyline HCl (Nortriptyline 25 Mg Capsule) 150 mg PO QHS [facility] Last Admin: 07/04/20 20:52 Dose: 150 mg Documented by: Ondansetron HCl (Ondansetron 8 Mg Tablet) 8 mg PO Q8H PRN PRN PRN Reason: NAUSEA Last Admin: 07/03/20 08:32 Dose: 8 mg Documented by: Pantoprazole Sodium (Pantoprazole Sodium 20 Mg Tablet) 20 mg PO DAILY@2200 [facility] Last Admin: 07/04/20 20:59 Dose: 20 mg Documented by: Phenobarbital (Phenobarbital 32.4 Mg Tablet) 32.4 mg PO Q6H [facility]; Taper Stop: 07/06/20 08:59 Last Admin: 07/05/20 08:31 Dose: 32.4 mg Documented by: Senna (Senna Tablet) 2 tablet PO QHS PRN PRN Reason: Constipation Last Admin: 07/02/20 09:09 Dose: 2 tablet Documented by: Sertraline HCl (Sertraline 50 Mg Tablet) 25 mg PO DAILY [facility] Last Admin: 07/05/20 08:31 Dose: 25 mg Documented by: Sodium Chloride (0.9% Saline Lock 10 Ml Syringe) 10 - 40 ml IV UD PRN PRN Reason: SALINE FLUSH Last Admin: 07/04/20 04:50 Dose: 10 ml Documented by: Thiamine HCl (Thiamine Hydrochloride 100 Mg Tablet) [facility] Last Admin: 07/05/20 08:31 Dose: 100 mg Documented by: Trazodone HCl (Trazodone 100 Mg Tablet) 300 mg PO QHS PRN PRN PRN Reason: SLEEP Last Admin: 07/02/20 22:10 Dose: 300 mg Documented by: Discharge Activity: May Not Drive Call your doctor if you observe: Fever of 101 or Higher, Numbness or Tingling, Change in Color, Inability to have a bowel movement, Using more than one pad per hour, Shortness of breath, Dizziness, Fainting spells, Swelling in the ankles, Chest pain, Prolonged hiccoughing, Increased palpitations (irregular heartbeat), Calf discomfort, Uncontrolled pain Home Medications: Medications to take at Discharge Estradiol 1 mg PO DAILY 09/01/19 Omeprazole Magnesium [Prilosec Otc] 20 mg PO DAILY 09/01/19 Progesterone, Micronized [Progesterone] 400 mg PO DAILY 09/01/19 traZODone [Desyrel] 300 mg PO QHS PRN PRN 09/01/19 Mirtazapine [Remeron] 15 mg PO QHS 07/01/20 Nortriptyline HCl [Pamelor] 150 mg PO QHS 07/02/20 Sertraline HCl [Zoloft] 25 mg PO DAILY 07/02/20 Folic Acid 1 mg PO DAILY@0800 #30 tab 07/05/20 Thiamine Hydrochloride [Vitamin B1] 100 mg PO DAILYCM #30 tab 07/05/20 Following Prescriptions Were Given to Patient: Folic Acid 1 mg PO DAILY@0800 #30 tab Transmission Status: Received by [id number] Thiamine Hydrochloride [Vitamin B1] 100 mg PO DAILYCM #30 tab Transmission Status: Received by [id number] Primary Care Physician: [facility] Doctor,Out of [NON-STAFF] - Please follow up with your Primary Care Physician in: in 1-2 weeks Please Follow Up With: Trish Martinez, DO When: for alcohol use disorder Medical Necessity - Tobacco Use Smoking Status: Former smoker Meaningful Use Info Meaningful Use Diagnoses (Choose all that apply): None applicable Inpatient E&M: 75714 Disch Hosp
[2020-07-05 13:36] VITALS: BP 128/72; PULSE 88; RESP 18; TEMP 36.8; O2SAT 98
== END 2020-07-05 13:46 | disposition home or self-care (01) | DRG 897 ==
LOC: ED 23:28 → MS3 23:41
PROVIDERS: Family Medicine; Admitting Provider Hospitalist; Emergency Provider Emergency Medicine; Visit Provider Internal Medicine
DX: F10.239 Alcohol dependence with withdrawal, unspecified (principal); F13.239 Sedative, hypnotic or anxiolytic dependence with withdrawal, unspecified; I95.1 Orthostatic hypotension; F32.9 Major depressive disorder, single episode, unspecified; Z87.891 Personal history of nicotine dependence; K21.9 Gastro-esophageal reflux disease without esophagitis; E66.9 Obesity, unspecified; F41.9 Anxiety disorder, unspecified; Z68.32 Body mass index [BMI] 32.0-32.9, adult; R29.6 Repeated falls
CPT/HCPCS: 36415; 80048; 80053; 80307; 80320; 83735; 84100; 85025; 99284; J7030; A4216; G0480